=== PATIENT | female | born 1955 | race Caucasian/White ===

== ENCOUNTER 2018-01-30 17:40 | Emergency (ER) | payer MEDICARE, OTHER ==
[2018-01-30 17:47] VITALS: TEMP 98
[2018-01-30] MEDS ORDERED: MORPHINE SULFATE 4 MG/ML SYRINGE IV STA (18:07)
[2018-01-30] MEDS ORDERED: ONDANSETRON 4 MG/2 ML VIAL IVP STA ×2 (18:26→19:49)
--- NOTE | 2018-01-30 18:37 | ED ---
General Adult HPI - General Source: patient, RN notes reviewed, old records reviewed Mode of arrival: ambulatory Limitations: no limitations <Timothy Mancilla - Last Filed: 01/30/18 19:59> <Lenin Hernandez - Last Filed: 01/30/18 20:14> - General Chief complaint: Fall Stated complaint: Fall/ankle injury Time Seen by Provider: 01/30/18 17:50 - History of Present Illness Initial comments: Patient's a 62-year-old female presenting to the emergency room today by transfer from [facility] for a fall that occurred at 10 AM this morning. She states that she was walking out of her house down a ramp and she had some bags her hands she slipped with her right leg falling underneath her left as she went down. She states that she's had pain to the right ankle was taken to the hospital. Patient was transferred here for orthopedic consult. Patient doesn't pain locally. Patient denies any other complaints or symptoms at this time. Patient denies any recent fever, chills, shortness of breath, chest pain, back pain, abdominal pain, nausea or vomiting, headaches or visual changes, or any other complaints. (Timothy Mancilla) - Related Data Home Medications Medication Instructions Recorded Confirmed Folic Acid 1 tab PO Q48H 06/23/13 01/30/18 Multivitamin [Multivitamins] 1 tab PO DAILY 06/23/13 01/30/18 metFORMIN HCL [Glucophage] 500 mg PO TID 06/23/13 01/30/18 Ascorbic Acid [Vitamin C] 500 mg PO BID 06/30/13 01/30/18 Insulin Degludec [Tresiba 70 unit SQ HS 01/30/18 01/30/18 Flextouch U-100] Liraglutide [Victoza 2-Mailcar] 1.8 mg SQ HS 01/30/18 01/30/18 Lisinopril [Zestril] 2.5 mg PO DAILY 01/30/18 01/30/18 Vit C/E/Zn/Coppr/Lutein/Zeaxan 1 cap PO DAILY 01/30/18 01/30/18 [Preservision Areds 2 Softgel] Allergies Allergy/AdvReac Type Severity Reaction Status Date / Time sulfamethoxazole Allergy Unknown Verified 01/30/18 17:54 [From Bactrim] trimethoprim [From Bactrim] Allergy Unknown Verified 01/30/18 17:54 Review of Systems ROS Other: All systems not noted in ROS Statement are negative. <Timothy Mancilla - Last Filed: 01/30/18 19:59> ROS Other: All systems not noted in ROS Statement are negative. <Lenin Hernandez - Last Filed: 01/30/18 20:14> ROS Statement: Those systems with pertinent positive or pertinent negative responses have been documented in the HPI. Past Medical History Past Medical History: Diabetes Mellitus, Hypertension Additional Past Medical History / Comment(s): neuropathy; wound L Leg History of Any Multi-Drug Resistant Organisms: MRSA Date of last positivie culture/infection: 2013 MDRO Source:: left foot Past Surgical History: Back Surgery, Cholecystectomy, Hysterectomy, Orthopedic Surgery Past Anesthesia/Blood Transfusion Reactions: No Reported Reaction Past Psychological History: No Psychological Hx Reported Smoking Status: Never smoker Past Alcohol Use History: Occasional Past Drug Use History: None Reported - Past Family History Mother Family Medical History: No Reported History <Timothy Mancilla - Last Filed: 01/30/18 19:59> General Exam Limitations: no limitations <Timothy Mancilla - Last Filed: 01/30/18 19:59> <Lenin Hernandez - Last Filed: 01/30/18 20:14> - General Exam Comments Initial Comments: General: The patient is awake and alert, in no distress, and does not appear acutely ill. Cardiovascular: There is a regular rate and rhythm. No murmur, rub or gallop is appreciated. Respiratory: Lungs are clear to auscultation, respirations are non-labored, breath sounds are equal. No wheezes, stridor, rales, or rhonchi. Musculoskeletal: Patient's right lower extremities is placed in a posterior OCL splint.. Pulses checked and 2+. Sensations intact. Cap refill less than 2 seconds. Neurological: A&O x 3. CN II-XII intact, There are no obvious motor or sensory deficits. Coordination appears grossly intact. Speech is normal. Skin: Skin is warm and dry and no rashes or lesions are noted. Psychiatric: Cooperative, appropriate mood & affect, normal judgment. (Timothy Mancilla) Course <Timothy Mancilla - Last Filed: 01/30/18 19:59> <Lenin Hernandez - Last Filed: 01/30/18 20:14> Vital Signs 01/30/18 01/30/18 17:43 20:04 Temperature 98 F Pulse Rate 75 79 Respiratory 16 15 Rate Blood Pressure 133/58 105/50 O2 Sat by Pulse 98 95 Oximetry - Reevaluation(s) Reevaluation #1: 01/30/18 20:14 medical transfer paperwork and record reviewed (Lenin Hernandez) Medical Decision Making <Timothy Mancilla - Last Filed: 01/30/18 19:59> <Lenin Hernandez - Last Filed: 01/30/18 20:14> - Medical Decision Making 184: Case discussed with nurse practitioner Ayanna on-call for orthopedics. She states she will discuss case with Dr. Clifton. 1914: Nurse Practitioner Ayanna has called back and states that she did speak with Dr. Clifton about the fracture. States that it is a complication case and should be transferred. Discussed with attending Dr Hernandez who has spoken with [facility] and awaiting to hear back from them. (Timothy Mancilla) 62 female the ER for evaluation will transfer Janell Manley for orthopedic traumatic treatment and evaluation (Lenin Hernandez) - Lab Data Lab Results 01/30/18 Range/Units 20:03 POC Glucose (mg/dL) 118 H (75-99) mg/dL POC Glu Rayon Coner ID Derek Mcneill Disposition <Timothy Mancilla - Last Filed: 01/30/18 19:59> Is patient prescribed a controlled substance at d/c from ED?: No - Out of Hospital Transfer - Req. Specs Out of Hospital Transfer - Requested Specifics: Other Emergency Center ([facility]) <Lenin Hernandez - Last Filed: 01/30/18 20:14> Clinical Impression: Morbid obesity with BMI of 45.0-49.9, adult, Morbid obesity due to excess calories, Charcot's joint of foot, Bimalleolar fracture of right ankle Narrative: Intraarticular Comminuted Fracture of Distal Tibia and Fibula (Lenin Hernandez) Disposition: OTHER INSTITUTION NOT DEFINED Condition: Fair Referrals: Keith Suarez, DO [Primary Care Provider] - 1-2 days
[2018-01-30] MEDS ORDERED: HYDROmorphone 1 MG/ML 1 ML SYRINGE IVP STA (19:03)
[2018-01-30] MEDS ORDERED: ONDANSETRON ODT 4 MG TAB PO STA (19:49)
[2018-01-30 20:06] LABS: Glucose,Whole Blood 118 mg/dL (75-99)
[2018-01-30 22:12] VITALS: BP 142/58; PULSE 60; RESP 16
== END 2018-01-30 22:09 | disposition other institution (70) ==
LOC: EC 17:40
DX: S82.841A Displaced bimalleolar fracture of right lower leg, initial encounter for closed fracture (principal); A52.16 Charcot's arthropathy (tabetic); E66.01 Morbid (severe) obesity due to excess calories; Z68.42 Body mass index [BMI] 45.0-49.9, adult; E11.40 Type 2 diabetes mellitus with diabetic neuropathy, unspecified; I10 Essential (primary) hypertension; Z86.14 Personal history of Methicillin resistant Staphylococcus aureus infection; Z79.4 Long term (current) use of insulin; Z79.899 Other long term (current) drug therapy; Z88.2 Allergy status to sulfonamides; W01.0XXA Fall on same level from slipping, tripping and stumbling without subsequent striking against object, initial encounter; Y93.01 Activity, walking, marching and hiking; Y92.89 Other specified places as the place of occurrence of the external cause
CPT/HCPCS: 36415; 99284; 96374; 96375 ×2; 96376; J2270; J2405; J1170

== ENCOUNTER 2019-07-19 04:15 | Inpatient (IN) | payer MEDICARE, OTHER ==
--- NOTE | 2019-07-19 04:43 | ED ---
Recheck HPI - General Chief Complaint: Shortness of Breath Stated Complaint: Shortness of Breath Time Seen by Provider: 07/19/19 04:40 Source: patient, EMS, RN notes reviewed, old records reviewed Mode of arrival: EMS Limitations: no limitations - History of Present Illness Initial Comments: This is a 64-year-old female she is presented today is accepted in transfer for evaluation regarding CHF COPD hypoxia respiratory disease as well as elevated troponin elevated be Troponin mildly elevated 0.03 be 1 1999. Patient feeling better on arrival here in the emergency department, no current chest pain or shortness of breath states his symptoms have much improved since arrival at the emergency department MD Complaint: abnormal lab (Patient abnormal labs and abnormal physical exam) -: days(s) Returns Today for: Called Because of Abnormal Lab/Test Symptoms Since Prior Visit: no new symptoms Context: planned re-check Associated Symptoms: none - Related Data Home Medications Medication Instructions Recorded Confirmed Folic Acid 1 tab PO Q48H 06/23/13 01/30/18 Multivitamin [Multivitamins] 1 tab PO DAILY 06/23/13 01/30/18 metFORMIN HCL [Glucophage] 500 mg PO TID 06/23/13 01/30/18 Ascorbic Acid [Vitamin C] 500 mg PO BID 06/30/13 01/30/18 Insulin Degludec [Tresiba 70 unit SQ HS 01/30/18 01/30/18 Flextouch U-100] Liraglutide [Victoza 2-Amilcar] 1.8 mg SQ HS 01/30/18 01/30/18 Lisinopril [Zestril] 2.5 mg PO DAILY 01/30/18 01/30/18 Vit C/E/Zn/Coppr/Lutein/Zeaxan 1 cap PO DAILY 01/30/18 01/30/18 [Preservision Areds 2 Softgel] Allergies Allergy/AdvReac Type Severity Reaction Status Date / Time sulfamethoxazole Allergy Unknown Verified 01/30/18 17:54 [From Bactrim] trimethoprim [From Bactrim] Allergy Unknown Verified 01/30/18 17:54 Review of Systems ROS Statement: Those systems with pertinent positive or pertinent negative responses have been documented in the HPI. ROS Other: All systems not noted in ROS Statement are negative. Past Medical History Past Medical History: Diabetes Mellitus, Hypertension Additional Past Medical History / Comment(s): neuropathy; wound L Leg History of Any Multi-Drug Resistant Organisms: MRSA Date of last positivie culture/infection: 2013 MDRO Source:: left foot Past Surgical History: Back Surgery, Cholecystectomy, Hysterectomy, Orthopedic Surgery Past Anesthesia/Blood Transfusion Reactions: No Reported Reaction Past Psychological History: No Psychological Hx Reported Smoking Status: Never smoker Past Alcohol Use History: Occasional Past Drug Use History: None Reported - Past Family History Mother Family Medical History: No Reported History General Exam Limitations: no limitations General appearance: alert, in no apparent distress Head exam: Present: atraumatic, normocephalic, normal inspection Eye exam: Present: normal appearance, PERRL, EOMI. Absent: scleral icterus, conjunctival injection, periorbital swelling ENT exam: Present: normal exam, mucous membranes moist Neck exam: Present: normal inspection. Absent: tenderness, meningismus, lymphadenopathy Respiratory exam: Present: respiratory distress, wheezes, rales, accessory muscle use, decreased breath sounds, prolonged expiratory. Absent: rhonchi, stridor Cardiovascular Exam: Present: regular rate, normal rhythm, normal heart sounds. Absent: systolic murmur, diastolic murmur, rubs, gallop, clicks GI/Abdominal exam: Present: soft, normal bowel sounds. Absent: distended, tenderness, guarding, rebound, rigid Extremities exam: Present: normal inspection, full ROM, normal capillary refill. Absent: tenderness, pedal edema, joint swelling, calf tenderness Back exam: Present: normal inspection Neurological exam: Present: alert, oriented X3, CN II-XII intact Psychiatric exam: Present: normal affect, normal mood Skin exam: Present: warm, dry, intact, normal color. Absent: rash Course Vital Signs 07/19/19 07/19/19 04:16 04:22 Temperature 98.9 F Pulse Rate 76 Respiratory 18 18 Rate Blood Pressure 102/65 O2 Sat by Pulse 100 Oximetry - Reevaluation(s) Reevaluation #1: 07/19/19 05:04 Medical record transferring paperwork is reviewed Spoke with transferring physician agreeable transfer for Reevaluation #2: 07/19/19 05:05 Patient has no complaints of chest pain or shortness of breath - Consultations Consultation #1: Spoke with Dr. Shine agreeable for admission Medical Decision Making - EKG Data -: EKG Interpreted by Me (EKG shows sinus rhythm of 77, IA 136, QRS 96, QTc 468) Disposition Clinical Impression: Acute pulmonary edema, Acute exacerbation of chronic obstructive pulmonary disease, Congestive heart failure, Hypoxia Disposition: ADMITTED IP TO THIS HOSP Condition: Fair Is patient prescribed a controlled substance at d/c from ED?: No Referrals: Keith Suarez DO [Primary Care Provider] - 1-2 days
[2019-07-19] MEDS ORDERED: ALBUTEROL NEBULIZED 2.5 MG/3 ML INHALATION PRN (04:58)
[2019-07-19] MEDS ORDERED: IPRATROPIUM-ALBUTEROL 3 ML NEB INHALATION STA (04:58)
[2019-07-19] MEDS ORDERED: FUROSEMIDE 10 MG/ML 4 ML VIAL IV SCH (05:00)
--- NOTE | 2019-07-19 05:12 | XR ---
EXAMINATION TYPE: XR chest 1V portable DATE OF EXAM: 07/19/2019 COMPARISON: 07/19/2019 HISTORY: Short of breath TECHNIQUE: FINDINGS: There is some blunting of the costophrenic angles. There is mild congestion. Exam limited b y patient size. There is no obvious heart failure. There is probably some atelectasis at the lung bas es. IMPRESSION: Pleural effusions and atelectasis at the lung bases probably increased compared to last e xam 4 hours ago. No obvious heart failure.
[2019-07-19] MEDS ORDERED: methylPREDNISolone SOD SUCCI 125 MG/2 ML VIAL IV SCH (06:00)
[2019-07-19] MEDS ORDERED: ENOXAPARIN 40 MG/0.4 ML SYRINGE SQ SCH (09:00)
[2019-07-19] MEDS: FUROSEMIDE 10 MG/ML 4 ML VIAL IV SCH ×2 (09:46→21:38)
[2019-07-19] MEDS: IPRATROPIUM-ALBUTEROL 3 ML NEB INHALATION SCH ×3 (10:56→19:47)
--- NOTE | 2019-07-19 11:40 | P.CNPUL ---
History of Present Illness Consult date: 07/19/19 Requesting physician: Lenin Hernandez Reason for consult: dyspnea, pleural effusion, abnormal CXR/CT Chief complaint: shortness of breath History of present illness: 64-year-old white female patient of Dr. Eliza Contreras in [place], with history of hypertension, and history of nonhealing left leg wound with MRSA infection, morbid obesity, nonsmoker, the patient denies any history of chronic lung disease. patient presented to the emergency department on 07/19/2019 at 4:15 in the morning per EMS from [facility] for evaluation of worsening shortness of breath, patient felt like she could not get a breath in, but denied any chest pain, no fever or chills. She states she had significant weight gain of around 40 pounds in the last month. Her lower extremities appear to have changes of chronic venous stasis and chronic swelling, however patient states they're significantly more swollen than usual. chest x-ray showed mild congestion, probable atelectasis at the lung bases, and pleural effusions. EKG showed normal sinus rhythm with a rate of 77 with low voltage QRS, and evidence of anterior infarct of undetermined age. at [facility] patient had abnormal troponins and possibility of non-ST elevated VT is being considered. She was started on IV Lasix, IV steroids, and nebulized bronchodilators. Currently feeling better. She is awaiting a bed on selective care unit. Review of Systems All systems: negative Constitutional: Denies chills, Denies fever Eyes: denies blurred vision, denies pain Ears, nose, mouth and throat: Denies headache, Denies sore throat Cardiovascular: Reports decreased exercise tolerance, Reports dyspnea on exertion, Reports edema, Reports orthopnea, Denies chest pain, Denies shortness of breath Respiratory: Reports dyspnea, Denies cough Gastrointestinal: Denies abdominal pain, Denies diarrhea, Denies nausea, Denies vomiting Genitourinary: Denies dysuria, Denies hematuria Musculoskeletal: Denies myalgias Integumentary: Reports darkening of skin, Denies pruritus, Denies rash Neurological: Denies numbness, Denies weakness Psychiatric: Denies anxiety, Denies depression Endocrine: Denies fatigue, Denies weight change Past Medical History Past Medical History: Diabetes Mellitus, Hypertension Additional Past Medical History / Comment(s): neuropathy; wound L Leg History of Any Multi-Drug Resistant Organisms: MRSA Date of last positivie culture/infection: 2013 MDRO Source:: left foot Past Surgical History: Back Surgery, Cholecystectomy, Hysterectomy, Orthopedic Surgery Past Anesthesia/Blood Transfusion Reactions: No Reported Reaction Past Psychological History: No Psychological Hx Reported Smoking Status: Never smoker Past Alcohol Use History: Occasional Past Drug Use History: None Reported - Past Family History Mother Family Medical History: No Reported History Medications and Allergies Home Medications Medication Instructions Recorded Confirmed Type Multivitamin [Multivitamins] 1 tab PO DAILY 06/23/13 07/19/19 History Ascorbic Acid [Vitamin C] 500 mg PO BID 06/30/13 07/19/19 History Insulin Degludec [Tresiba 70 units SQ HS 07/19/19 07/19/19 History Flextouch U-200] Liraglutide [Victoza 3-Amilcar] 1.8 mg SQ DAILY 07/19/19 07/19/19 History Lisinopril [Zestril] 10 mg PO DAILY 07/19/19 07/19/19 History Tolterodine Tartrate [Detrol LA] 4 mg PO DAILY 07/19/19 07/19/19 History metFORMIN HCL [Glucophage] 500 mg PO TID 07/19/19 07/19/19 History Allergies Allergy/AdvReac Type Severity Reaction Status Date / Time sulfamethoxazole Allergy Unknown Verified 07/19/19 08:56 [From Bactrim] trimethoprim [From Bactrim] Allergy Unknown Verified 07/19/19 08:56 Physical Exam Vitals: Vital Signs Temp Pulse Resp BP Pulse Ox 07/19/19 06:00 75 18 112/61 99 07/19/19 05:29 76 07/19/19 05:20 74 07/19/19 04:22 18 07/19/19 04:16 98.9 F 76 18 102/65 100 Intake and Output 07/18/19 07/19/19 07/19/19 22:59 06:59 14:59 Output Total 700 Balance -700 Output: Urine 700 Other: Voiding Method Indwelling Catheter Weight 151.5 kg GENERAL EXAM: Alert, a pleasant, 64-year-old obese white female, currently on 2 L of oxygen with pulse ox of 97% resting comfortably on the gurney in the emergency chief librarian branch or department: Normocephalic/atraumatic. EYES: Normal reaction of pupils, equal size. Conjunctiva pink, sclera white. NOSE: Clear with pink turbinates. THROAT: No erythema or exudates. NECK: No masses, no JVD, no thyroid enlargement, no adenopathy. CHEST: No chest wall deformity. Symmetrical expansion. LUNGS: Equal air entry with no crackles, wheeze, rhonchi or dullness. CVS: Regular rate and rhythm, normal S1 and S2, no gallops, no murmurs, no rubs ABDOMEN: Soft, nontender. No hepatosplenomegaly, normal bowel sounds, no guarding or rigidity. EXTREMITIES: No clubbing, chronic venous stasis changes present to lower extremities, suspec t some chronic swelling to lower extremities no cyanosis, 2+ pulses and upper and lower extremities. 2+ lower extremity edema MUSCULOSKELETAL: Muscle strength and tone normal. SPINE: No scoliosis or deformity SKIN: No rashes CENTRAL NERVOUS SYSTEM: Alert and oriented -3. No focal deficits, tone is normal in all 4 extremities. PSYCHIATRIC: Alert and oriented -3. Appropriate affect. Intact judgment and insight. Results - Diagnostic Findings Chest x-ray: report reviewed, image reviewed Assessment and Plan Plan: Assessment: #1. Acute hypoxemic respiratory failure related to acute exacerbation of congestive heart failure with unknown ejection fraction #2. Rule out non-ST elevated myocardial infarction #3. Significant weight gain of around 40 pounds in the last month #4. Morbid obesity #5. Lifetime nonsmoker #6. diabetes mellitus type 2, with diabetic neuropathy #7. History of MRSA infection and nonhealing wound in the left leg Plan: Continue IV diuretics, accurate intake and output, daily weights, daily electrolytes and renal profile, follow-up troponin, will obtain echocardiogram, follow-up chest x-ray in the morning. COVID 19 test is pending. Cardiology evaluation is pending. we'll continue to follow I performed a history & physical examination of the patient and discussed their management with my nurse practitioner, Vandana Curry. I reviewed the nurse practitioner's note and agree with the documented findings and plan of care. Lung sounds are positive for diminished breath sounds. The findings and the impression was discussed with the patient. I attest to the documentation by the nurse practitioner. Time with Patient: Greater than 30
[2019-07-19 12:31] LABS: Basophils % (A) 0 %; Eosinophils % (A) 0 %; HCT 37.5 % (34.0-46.0); HGB 11.5 gm/dL (11.4-16.0); Hypochromasia Marked; Lymphocytes # (A) 0.5 k/uL (1.0-4.8); Lymphocytes % (A) 7 %; MCH 26.7 pg (25.0-35.0); MCHC 30.8 g/dL (31.0-37.0); MCV 86.6 fL (80.0-100.0); Mean Platelet Volume 8.3; Monocytes # (A) 0.1 k/uL (0-1.0); Monocytes % (A) 2 %; Neutrophils # (A) 6.5 k/uL (1.3-7.7); Neutrophils % (A) 90 %; Platelet Count 280 k/uL (150-450); RBC 4.33 m/uL (3.80-5.40); RDW 14.7 % (11.5-15.5); WBC 7.3 k/uL (3.8-10.6)
[2019-07-19 12:42] LABS: Albumin 3.4 g/dL (3.5-5.0); Calcium 8.4 mg/dL (8.4-10.2); Potassium 4.8 mmol/L (3.5-5.1); Total Bilirubin 0.8 mg/dL (0.2-1.3); Total Protein 6.2 g/dL (6.3-8.2)
--- NOTE | 2019-07-19 12:55 | P.CRDCN ---
History of Present Illness Consult date: 07/19/19 Chief complaint: Shortness of breath/lower extremities edema History of present illness: This is a very pleasant 64-year-old female patient with a past medical history significant for morbid obesity, diabetes, hypertension, and dyslipidemia as well as tonic lower extremities edema. The patient was in her usual state of altered about 3 weeks ago when she started experiencing progressive exertional dyspnea associated with progressive lower extremities edema. She stated that she gained 50 pounds within one month. No symptoms of chest pain or chest discomfort, dizziness, heart racing, or syncope. The patient ever being told in the past t hat she does have congestive heart failure. The patient never seen any principal consultant as an outpatient. No history of coronary artery disease or any cardiac arrhythmia. On physical examination she does have severe bilateral lower extremities edema was chronic skin changes. She does have diminished breathing sounds during her physical examination as well. The EKG showed sinus rhythm without any significant ST or T-wave abnormalities but nonspecific changes. No blood work in the computer but I am going to review her blood work from the hospital she was transferred from. Meanwhile we'll repeat her blood work including CBC, BMP, as well as cardiac enzymes, as well as BMP. The patient was started on Lasix already. I am going to obtain an echocardiogram to evaluate her left ventricular systolic and diastolic function and also for any intracardiac valves abnormalities. We'll continue following up with the patient. Past Medical History Past Medical History: Diabetes Mellitus, Hypertension Additional Past Medical History / Comment(s): neuropathy; wound L Leg History of Any Multi-Drug Resistant Organisms: MRSA Date of last positivie culture/infection: 2013 MDRO Source:: left foot Past Surgical History: Back Surgery, Cholecystectomy, Hysterectomy, Orthopedic Surgery Past Anesthesia/Blood Transfusion Reactions: No Reported Reaction Past Psychological History: No Psychological Hx Reported Smoking Status: Never smoker Past Alcohol Use History: Occasional Past Drug Use History: None Reported - Past Family History Mother Family Medical History: No Reported History Medications and Allergies Home Medications Medication Instructions Recorded Confirmed Type Multivitamin [Multivitamins] 1 tab PO DAILY 06/23/13 07/19/19 History Ascorbic Acid [Vitamin C] 500 mg PO BID 06/30/13 07/19/19 History Insulin Degludec [Tresiba 70 units SQ HS 07/19/19 07/19/19 History Flextouch U-200] Liraglutide [Victoza 3-Amilcar] 1.8 mg SQ DAILY 07/19/19 07/19/19 History Lisinopril [Zestril] 10 mg PO DAILY 07/19/19 07/19/19 History Tolterodine Tartrate [Detrol LA] 4 mg PO DAILY 07/19/19 07/19/19 History metFORMIN HCL [Glucophage] 500 mg PO TID 07/19/19 07/19/19 History Allergies Allergy/AdvReac Type Severity Reaction Status Date / Time sulfamethoxazole Allergy Unknown Verified 07/19/19 08:56 [From Bactrim] trimethoprim [From Bactrim] Allergy Unknown Verified 07/19/19 08:56 Physical Exam Vitals: Vital Signs Temp Pulse Resp BP Pulse Ox 07/19/19 11:17 98.1 F 80 20 126/74 97 07/19/19 11:06 88 07/19/19 10:56 88 07/19/19 10:37 76 20 123/67 97 07/19/19 06:00 75 18 112/61 99 07/19/19 05:29 76 07/19/19 05:20 74 07/19/19 04:22 18 07/19/19 04:16 98.9 F 76 18 102/65 100 Intake and Output 07/18/19 07/19/19 07/19/19 22:59 06:59 14:59 Output Total 700 Balance -700 Output: Urine 700 Other: Voiding Method Indwelling Catheter Weight 151.5 kg - Constitutional General appearance: no acute distress - Respiratory Respiratory: bilateral: diminished - Cardiovascular Rhythm: regular Heart sounds: normal: S1, S2 Abnormal Heart Sounds: systolic murmur Results 07/19/19 11:59 07/19/19 11:59 Cardiac Enzymes 07/19/19 Range/Units 11:59 AST 39 H (14-36) U/L CBC 07/19/19 Range/Units 11:59 WBC 7.3 (3.8-10.6) k/uL RBC 4.33 (3.80-5.40) m/uL Hgb 11.5 (11.4-16.0) gm/dL Hct 37.5 (34.0-46.0) % Plt Count 280 (150-450) k/uL Comprehensive Metabolic Panel 07/19/19 Range/Units 11:59 Sodium 133 L (137-145) mmol/L Potassium 4.8 (3.5-5.1) mmol/L Chloride 98 (98-107) mmol/L Carbon Dioxide 26 (22-30) mmol/L BUN 30 H (7-17) mg/dL Creatinine 1.13 H (0.52-1.04) mg/dL Glucose 167 H (74-99) mg/dL Calcium 8.4 (8.4-10.2) mg/dL AST 39 H (14-36) U/L ALT 45 H (4-34) U/L Alkaline Phosphatase 146 H (38-126) U/L Total Protein 6.2 L (6.3-8.2) g/dL Albumin 3.4 L (3.5-5.0) g/dL Current Medications Generic Name Dose Route Start Last Admin Trade Name Freq PRN Reason Stop Dose Admin Albuterol Sulfate 2.5 mg 07/19/19 04:58 Ventolin Nebulized INHALATION RT-QID PRN Shortness Of Breath Albuterol/Ipratropium 3 ml 07/19/19 08:00 07/19/19 10:56 Duoneb 0.5 Mg-3 Mg/3 Ml Soln INHALATION 3 ml RT-QID JOCELYN Administration Enoxaparin Sodium 40 mg 07/19/19 09:00 07/19/19 11:16 Lovenox SQ 40 mg DAILY JOCELYN Administration Furosemide 40 mg 07/19/19 09:00 07/19/19 09:46 Lasix IV Not Given Q12HR JOCELYN Lisinopril 10 mg 07/20/19 09:00 Zestril PO DAILY JOCELYN Intake and Output 07/18/19 07/19/19 07/19/19 22:59 06:59 14:59 Output Total 700 Balance -700 Output: Urine 700 Other: Voiding Method Indwelling Catheter Weight 151.5 kg 07/19/19 11:59 07/19/19 11:59 Assessment and Plan Assessment: Assessment #1 congestive heart failure exacerbation of unknown etiology #2 morbid obesity #3 diabetes #4 multiple comorbid conditions Plan #1 rule out acute coronary event. We'll follow-up on the serial cardiac enzymes #2 review with a blood work from the hospital she was transferred from #3 obtain an echocardiogram was Doppler #4 continue the current dose of Lasix IV #5 continue monitoring the kidney function and electrolytes #6 follow-up with the patient Thank you for allowing us participate in her care
--- NOTE | 2019-07-19 15:21 | P.HPIM ---
History of Present Illness 64-year-old morbidly obese female came in with compensative from bilateral pedal edema 44 pound weight gain and some shortness of breath and orthopnea. Patient believes she has sleep apnea but never gets study done patient appears to have severe restrictive lung disease. Patient is receiving Lasix had not had an echocardiogram available from the past. Patient does have chronic venous stasis of both lower extremities. Patient denied any chest pain chest x-ray showed mild congestion possible DF atelectasis in both lower lung bases EKG did not show any acute ST-T wave changes cardiology evaluated patient will not be evaluated the patient as well. Patient was started on IV Lasix. Review of Systems REVIEW OF SYSTEMS: CONSTITUTIONAL: No fever, no malaise, no fatigue. HEENT: No recent visual problems or hearing problems. Denied any sore throat. CARDIOVASCULAR: No chest pain, orthopnea, PND, no palpitations, no syncope. PULMONARY: no cough, no hemoptysis. GASTROINTESTINAL: No diarrhea, no nausea, no vomiting, no abdominal pain. NEUROLOGICAL: No headaches, no weakness, no numbness. HEMATOLOGICAL: Denies any bleeding or petechiae. GENITOURINARY: Denies any burning micturition, frequency, or urgency. MUSCULOSKELETAL/RHEUMATOLOGICAL: Denies any joint pain, swelling, or any muscle pain. ENDOCRINE: Denies any polyuria or polydipsia. The rest of the 14-point review of systems is negative. Past Medical History Past Medical History: Diabetes Mellitus, Hypertension Additional Past Medical History / Comment(s): neuropathy; wound L Leg History of Any Multi-Drug Resistant Organisms: MRSA Date of last positivie culture/infection: 2013 MDRO Source:: left foot Past Surgical History: Back Surgery, Cholecystectomy, Hysterectomy, Orthopedic Surgery Past Anesthesia/Blood Transfusion Reactions: No Reported Reaction Past Psychological History: No Psychological Hx Reported Smoking Status: Never smoker Past Alcohol Use History: Occasional Past Drug Use History: None Reported - Past Family History Mother Family Medical History: No Reported History Medications and Allergies Home Medications Medication Instructions Recorded Confirmed Type Multivitamin [Multivitamins] 1 tab PO DAILY 06/23/13 07/19/19 History Ascorbic Acid [Vitamin C] 500 mg PO BID 06/30/13 07/19/19 History Insulin Degludec [Tresiba 70 units SQ HS 07/19/19 07/19/19 History Flextouch U-200] Liraglutide [Victoza 3-Amilcar] 1.8 mg SQ DAILY 07/19/19 07/19/19 History Lisinopril [Zestril] 10 mg PO DAILY 07/19/19 07/19/19 History Tolterodine Tartrate [Detrol LA] 4 mg PO DAILY 07/19/19 07/19/19 History metFORMIN HCL [Glucophage] 500 mg PO TID 07/19/19 07/19/19 History Allergies Allergy/AdvReac Type Severity Reaction Status Date / Time sulfamethoxazole Allergy Unknown Verified 07/19/19 08:56 [From Bactrim] trimethoprim [From Bactrim] Allergy Unknown Verified 07/19/19 08:56 Physical Exam Vitals: Vital Signs Temp Pulse Resp BP Pulse Ox 07/19/19 11:17 98.1 F 80 20 126/74 97 07/19/19 11:06 88 07/19/19 10:56 88 07/19/19 10:37 76 20 123/67 97 07/19/19 06:00 75 18 112/61 99 07/19/19 05:29 76 07/19/19 05:20 74 07/19/19 04:22 18 07/19/19 04:16 98.9 F 76 18 102/65 100 Intake and Output 07/19/19 07/19/19 07/19/19 06:59 14:59 22:59 Output Total 700 Balance -700 Output: Urine 700 Other: Voiding Method Indwelling Catheter Weight 151.5 kg PHYSICAL EXAMINATION: GENERAL: The patient is alert and oriented x3, not in any acute distress. Her but obese with BMI of around 54 HEENT: Pupils are round and equally reacting to light. EOMI. No scleral icterus. No conjunctival pallor. Normocephalic, atraumatic. No pharyngeal erythema. No thyromegaly. CARDIOVASCULAR: S1 and S2 present. No murmurs, rubs, or gallops. PULMONARY: Chest is clear to auscultation, no wheezing or crackles. ABDOMEN: Soft, nontender, nondistended, normoactive bowel sounds. No palpable organomegaly. MUSCULOSKELETAL: No joint swelling or deformity. EXTREMITIES: No cyanosis, clubbing, extensive bilateral pedal edema with chronic venous stasis and venous stasis dermatosis of both legs with more healed ulcers NEUROLOGICAL: Gross neurological examination did not reveal any focal deficits. SKIN: No rashes. Results CBC & Chem 7: 07/19/19 11:59 07/19/19 11:59 Labs: Abnormal Lab Results - Last 24 Hours (Table) 07/19/19 07/19/19 07/19/19 Range/Units 11:31 11:59 11:59 MCHC 30.8 L (31.0-37.0) g/dL Lymphocytes # 0.5 L (1.0-4.8) k/uL Sodium 133 L (137-145) mmol/L BUN 30 H (7-17) mg/dL Creatinine 1.13 H (0.52-1.04) mg/dL Glucose 167 H (74-99) mg/dL AST 39 H (14-36) U/L ALT 45 H (4-34) U/L Alkaline Phosphatase 146 H (38-126) U/L Troponin I 0.042 H* (0.000-0.034) ng/mL Total Protein 6.2 L (6.3-8.2) g/dL Albumin 3.4 L (3.5-5.0) g/dL Assessment and Plan Plan: Bilateral pedal edema shortness of breath patient most probably has severe pulmonary hypertension from undiagnosed sleep apnea including to extensive pedal edema fluid retention and right-sided heart failure I cannot completely rule out left-sided heart failure echocardiogram is pending continue with IV Lasix. Shortness of breath is partly secondary to her obesity obesity hypoventilation syndrome. -Hyponatremia hypervolemic hyponatremia expected to improve with IV Lasix -Chronic kidney disease stage III secondary to diabetic nephropathy -Mildly elevated troponin secondary to shortness of breath -Mildly elevated liver enzymes secondary to hepatic congestion -Obesity with sleep apnea and possible based stay hypoventilation syndrome -Type 2 diabetes mellitus: The patient will be resumed on home regimen along w ith sliding scale -DVT prophylaxis with Lovenox
[2019-07-19 17:03] LABS: Glucose,Whole Blood 179 mg/dL (75-99)
[2019-07-19] MEDS: INSULIN ASPART (NovoLOG) 100 UNIT/ML VIAL SQ SCH ×2 (17:09→21:38)
[2019-07-19] MEDS ORDERED: INSULIN DETEMIR (LEVEMIR) 100 UNIT/ML SYR SQ SCH (21:00)
[2019-07-19 21:17] LABS: Glucose,Whole Blood 242 mg/dL (75-99)
[2019-07-19] MEDS: HEPARIN SOD,PORK IN 0.45% NACL 25,000 UNIT in 0.45% NACL 1 250ML.BAG IV SCH (21:41)
[2019-07-20] MEDS ORDERED: HEPARIN SODIUM,PORCINE 5,000 UNIT/ML 1 ML VIAL IV STA (04:13)
[2019-07-20 04:14] LABS: Calcium 8.8 mg/dL (8.4-10.2)
[2019-07-20 07:29] LABS: Glucose,Whole Blood 163 mg/dL (75-99)
[2019-07-20] MEDS: IPRATROPIUM-ALBUTEROL 3 ML NEB INHALATION SCH ×4 (08:12→20:41)
[2019-07-20] MEDS: INSULIN ASPART (NovoLOG) 100 UNIT/ML VIAL SQ SCH ×3 (08:17→21:14)
[2019-07-20] MEDS: LISINOPRIL 10 MG TAB PO SCH (09:11)
[2019-07-20] MEDS: OXYBUTYNIN 10 MG TAB.ER.24 PO SCH (09:11)
[2019-07-20] MEDS: FUROSEMIDE 10 MG/ML 4 ML VIAL IV SCH ×2 (09:13→21:14)
[2019-07-20 10:16] LABS: Glucose,Whole Blood 198 mg/dL (75-99)
[2019-07-20] MEDS ORDERED: HEPARIN SODIUM,PORCINE 5,000 UNIT/ML 1 ML VIAL IV PRN (11:29)
[2019-07-20] MEDS ORDERED: INSULIN ASPART (NovoLOG) 100 UNIT/ML VIAL SQ SCH (12:30)
--- NOTE | 2019-07-20 12:35 | P.PN ---
Subjective 64-year-old female was admitted with shortness of breath and weight gain of 44 pounds and patient is being treated for failure exacerbation patient may have congestive heart failure left ventricular dysfunction and/or right-sided heart failure and pulmonary hypertension. Echocardiogram is still pending. Patient's swelling in the both legs improved significantly. Patient remains on Lasix patient feels much better today. But still short of breath Constitutional: Denied any fatigue denied any fever. Cardio vascular: denied any chest pain, palpitations Gastrointestinal denied any nausea vomiting Pulmonary: As mentioned in HPI Neurologic denied any new focal deficits All inpatient medications were reviewed and appropriate changes in these medications as dictated in the interval history and assessment and plan. Objective - Vital Signs Vital signs: Vital Signs Temp 98.9 F 07/20/19 11:55 Pulse 85 07/20/19 12:24 Resp 19 07/20/19 11:55 BP 122/61 07/20/19 11:55 Pulse Ox 99 07/20/19 11:55 Intake & Output 07/19/19 07/20/19 07/20/19 18:59 06:59 18:59 Intake Total 64.563 105.82 Output Total 5451 316 5189 Balance -1500 -435.437 -1044.18 Intake: Intake, IV Titration 64.563 105.82 Amount Heparin Sod,Pork in 0.45% 64.563 105.82 NaCl 25,000 unit In 0.45 % NaCl 1 250ml.bag @ 6.59 UNITS/KG/HR 9.984 mls/hr IV .[facility]H [facility] Rx#: [id number] Output: Urine 8917 117 2225 Other: Voiding Method Indwelling Catheter Indwelling Catheter - Exam PHYSICAL EXAMINATION: GENERAL: The patient is alert and oriented x3, not in any acute distress. Her but obese with BMI of around 54 HEENT: Pupils are round and equally reacting to light. EOMI. No scleral icterus. No conjunctival pallor. Normocephalic, atraumatic. No pharyngeal erythema. No thyromegaly. CARDIOVASCULAR: S1 and S2 present. No murmurs, rubs, or gallops. PULMONARY: Chest is clear to auscultation, no wheezing or crackles. ABDOMEN: Soft, nontender, nondistended, normoactive bowel sounds. No palpable organomegaly. MUSCULOSKELETAL: No joint swelling or deformity. EXTREMITIES: No cyanosis, clubbing, extensive bilateral pedal edema with chronic venous stasis and venous stasis dermatosis of both legs with more healed ulcers, swelling in both legs intermittently improved NEUROLOGICAL: Gross neurological examination did not reveal any focal deficits. SKIN: No rashes. - Labs CBC & Chem 7: 07/19/19 11:59 07/20/19 03:02 Labs: Abnormal Lab Results - Last 24 Hours (Table) 07/19/19 07/19/19 07/19/19 Range/Units 11:31 11:59 16:21 Sodium 133 L (137-145) mmol/L Chloride (98-107) mmol/L BUN 30 H (7-17) mg/dL Creatinine 1.13 H (0.52-1.04) mg/dL Glucose 167 H (74-99) mg/dL POC Glucose (mg/dL) (75-99) mg/dL AST 39 H (14-36) U/L ALT 45 H (4-34) U/L Alkaline Phosphatase 146 H (38-126) U/L Troponin I 0.042 H* 0.037 H* (0.000-0.034) ng/mL Total Protein 6.2 L (6.3-8.2) g/dL Albumin 3.4 L (3.5-5.0) g/dL 07/19/19 07/19/19 07/20/19 Range/Units 17:01 21:15 03:02 Sodium 135 L (137-145) mmol/L Chloride 97 L (98-107) mmol/L BUN 34 H (7-17) mg/dL Creatinine 1.18 H (0.52-1.04) mg/dL Glucose 199 H (74-99) mg/dL POC Glucose (mg/dL) 179 H 242 H (75-99) mg/dL AST (14-36) U/L ALT (4-34) U/L Alkaline Phosphatase (38-126) U/L Troponin I (0.000-0.034) ng/mL Total Protein (6.3-8.2) g/dL Albumin (3.5-5.0) g/dL 07/20/19 07/20/19 Range/Units 07:28 10:14 Sodium (137-145) mmol/L Chloride (98-107) mmol/L BUN (7-17) mg/dL Creatinine (0.52-1.04) mg/dL Glucose (74-99) mg/dL POC Glucose (mg/dL) 163 H 198 H (75-99) mg/dL AST (14-36) U/L ALT (4-34) U/L Alkaline Phosphatase (38-126) U/L Troponin I (0.000-0.034) ng/mL Total Protein (6.3-8.2) g/dL Albumin (3.5-5.0) g/dL Assessment and Plan Plan: Bilateral pedal edema shortness of breath patient most probably has severe pulmonary hypertension from undiagnosed sleep apnea including to extensive pedal edema fluid retention and right-sided heart failure I cannot completely rule out left-sided heart failure echocardiogram is pending continue with IV Lasix. Respiratory status improved. Her edema improved significantly -Hyponatremia hypervolemic hyponatremia improving with IV Lasix -Chronic kidney disease stage III secondary to diabetic nephropathy -Mildly elevated troponin secondary to shortness of breath -Mildly elevated liver enzymes secondary to hepatic congestion -Obesity with sleep apnea and possible based stay hypoventilation syndrome -Type 2 diabetes mellitus: The patient will be resumed on home regimen along with sliding scale -DVT prophylaxis with Lovenox
[2019-07-20 12:44] LABS: Glucose,Whole Blood 216 mg/dL (75-99)
[2019-07-20 12:52] VITALS: BMI 53.8
--- NOTE | 2019-07-20 14:57 | P.PN ---
Subjective Progress Note Date: 07/20/19 Principal diagnosis: dyspnea, pleural effusion, abnormal chest x-ray on 07/20/2019 patient seen in follow-up on selective care unit. She is awake and alert, feeling much better, breathing much easier, she has been diuresed, lower extremity edema has improved, and abdominal distention has improved, she is currently at 2 L of oxygen with pulse ox between 94 and 99%, no complaint of chest pain, sounds are clear, diminished at the bases, no rhonchi, no wheezing, no phlegm production. she remains on heparin infusion for elevated troponins, and she's had no episodes of chest pain, patient is on IV Lasix at 40 mg every 12 hours, and she is in -1044 mL fluid balance over the last 24 hours. echocardiogram results have been pending. Objective - Vital Signs Vital signs: Vital Signs Temp 98.9 F 07/20/19 11:55 Pulse 85 07/20/19 12:24 Resp 19 07/20/19 11:55 BP 122/61 07/20/19 11:55 Pulse Ox 99 07/20/19 11:55 Intake & Output 07/19/19 07/20/19 07/20/19 18:59 06:59 18:59 Intake Total 64.563 105.82 Output Total 3434 493 0008 Balance -1500 -435.437 -1044.18 Weight 151.5 kg Intake: Intake, IV Titration 64.563 105.82 Amount Heparin Sod,Pork in 0.45% 64.563 105.82 NaCl 25,000 unit In 0.45 % NaCl 1 250ml.bag @ 6.59 UNITS/KG/HR 9.984 mls/hr IV .Q24H [facility] Rx#: [id number] Output: Urine 3678 [id number] [id number] Other: Voiding Method Indwelling Catheter Indwelling Catheter - Exam GENERAL EXAM: Alert, a pleasant, 64-year-old obese white female, currently on 2 L of oxygen with pulse ox of 97% resting comfortably on the gurney in the 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 EYES: Normal reaction of pupils, equal size. Conjunctiva pink, sclera white. NOSE: Clear with pink turbinates. THROAT: No erythema or exudates. NECK: No masses, no JVD, no thyroid enlargement, no adenopathy. CHEST: No chest wall deformity. Symmetrical expansion. LUNGS: Equal air entry with no crackles, wheeze, rhonchi or dullness. CVS: Regular rate and rhythm, normal S1 and S2, no gallops, no murmurs, no rubs ABDOMEN: Soft, nontender. No hepatosplenomegaly, normal bowel sounds, no guarding or rigidity. EXTREMITIES: No clubbing, chronic venous stasis changes present to lower extremities, suspec t some chronic swelling to lower extremities no cyanosis, 2+ pulses and upper and lower extremities. 2+ lower extremity edema MUSCULOSKELETAL: Muscle strength and tone normal. SPINE: No scoliosis or deformity SKIN: No rashes CENTRAL NERVOUS SYSTEM: Alert and oriented -3. No focal deficits, tone is normal in all 4 extremities. PSYCHIATRIC: Alert and oriented -3. Appropriate affect. Intact judgment and insight. - Labs CBC & Chem 7: 07/19/19 11:59 07/20/19 03:02 Labs: Abnormal Lab Results - Last 24 Hours (Table) 07/19/19 07/19/19 07/19/19 Range/Units 16:21 17:01 21:15 Sodium (137-145) mmol/L Chloride (98-107) mmol/L BUN (7-17) mg/dL Creatinine (0.52-1.04) mg/dL Glucose (74-99) mg/dL POC Glucose (mg/dL) 179 H 242 H (75-99) mg/dL Troponin I 0.037 H* (0.000-0.034) ng/mL 07/20/19 07/20/19 07/20/19 Range/Units 03:02 07:28 10:14 Sodium 135 L (137-145) mmol/L Chloride 97 L (98-107) mmol/L BUN 34 H (7-17) mg/dL Creatinine 1.18 H (0.52-1.04) mg/dL Glucose 199 H (74-99) mg/dL POC Glucose (mg/dL) 163 H 198 H (75-99) mg/dL Troponin I (0.000-0.034) ng/mL 07/20/19 Range/Units 12:43 Sodium (137-145) mmol/L Chloride (98-107) mmol/L BUN (7-17) mg/dL Creatinine (0.52-1.04) mg/dL Glucose (74-99) mg/dL POC Glucose (mg/dL) 216 H (75-99) mg/dL Troponin I (0.000-0.034) ng/mL Assessment and Plan Plan: Assessment: #1. Acute hypoxemic respiratory failure related to acute exacerbation of congestive heart failure with unknown ejection fraction #2. Rule out non-ST elevated myocardial infarction #3. Significant weight gain of around 40 pounds in the last month #4. Morbid obesity #5. Lifetime nonsmoker #6. diabetes mellitus type 2, with diabetic neuropathy #7. History of MRSA infection and nonhealing wound in the left leg #8. Suspect obstructive sleep apnea, will need outpatient evaluation Plan: Continue current medical treatment, continue IV diuretics, echocardiogram results are pending, overall patient is breathing easier, feeling better, FiO2 is currently at 2 L, patient reports intermittent lower extremity edema, and abdominal distention. Follow-up chest x-ray in the morning. Suspect underlying obstructive sleep apnea, and patient is recommended to have outpatient evalu ation with the sleep study. will follow I performed a history & physical examination of the patient and discussed their management with my nurse practitioner, Vandana Curry. I reviewed the nurse pr actitioner's note and agree with the documented findings and plan of care. Lung sounds are positive for diminished breath sounds. The findings and the impression was discussed with the patient. I attest to the documentation by the nurse practitioner. Time with Patient: Less than 30
--- NOTE | 2019-07-20 15:03 | P.PN ---
Subjective Progress Note Date: 07/20/19 Principal diagnosis: Shortness of breath/mildly abnormal troponin This is a very pleasant 64-year-old female patient with a past medical history significant for morbid obesity, diabetes, hypertension, and dyslipidemia as well as tonic lower extremities edema. The patient was in her usual state of altered about 3 weeks ago when she started experiencing progressive exertional dyspnea associated with progressive lower extremities edema. She stated that she gained 50 pounds within one month. No symptoms of chest pain or chest discomfort, dizziness, heart racing, or syncope. The patient ever being told in the past that she does have congestive heart failure. The patient never seen any engine room helper as an outpatient. No history of coronary artery disease or any cardiac arrhythmia. On physical examination she does have severe bilateral lower extremities edema was chronic skin changes. The EKG showed sinus rhythm without any significant ST or T-wave abnormalities but nonspecific changes. The patient was seen today, July 192019. She stated that she is feeling better interval shortness of breath. No chest pain or chest discomfort. The troponin is slightly elevated. She is on heparin IV. She is also on Lasix which I would continue for additional 24 hours. We are waiting for the echocardiogram results. Objective - Vital Signs Vital signs: Vital Signs Temp 98.9 F 07/20/19 11:55 Pulse 85 07/20/19 12:24 Resp 19 07/20/19 11:55 BP 122/61 07/20/19 11:55 Pulse Ox 99 07/20/19 11:55 Intake & Output 07/19/19 07/20/19 07/20/19 18:59 06:59 18:59 Intake Total 64.563 105.82 Output Total 0770 811 1825 Balance -1500 -435.437 -1044.18 Weight 151.5 kg Intake: Intake, IV Titration 64.563 105.82 Amount Heparin Sod,Pork in 0.45% 64.563 105.82 NaCl 25,000 unit In 0.45 % NaCl 1 250ml.bag @ 6.59 UNITS/KG/HR 9.984 mls/hr IV .Q24H [facility] Rx#: [id number] Output: Urine [id number] Other: Voiding Method Indwelling Catheter Indwelling Catheter - Constitutional General appearance: Present: no acute distress - Respiratory Respiratory: bilateral: diminished - Cardiovascular Rhythm: regular Heart sounds: normal: S1, S2 - Labs CBC & Chem 7: 07/19/19 11:59 07/20/19 03:02 Labs: Abnormal Lab Results - Last 24 Hours (Table) 07/19/19 07/19/19 07/19/19 Range/Units 16:21 17:01 21:15 Sodium (137-145) mmol/L Chloride (98-107) mmol/L BUN (7-17) mg/dL Creatinine (0.52-1.04) mg/dL Glucose (74-99) mg/dL POC Glucose (mg/dL) 179 H 242 H (75-99) mg/dL Troponin I 0.037 H* (0.000-0.034) ng/mL 07/20/19 07/20/19 07/20/19 Range/Units 03:02 07:28 10:14 Sodium 135 L (137-145) mmol/L Chloride 97 L (98-107) mmol/L BUN 34 H (7-17) mg/dL Creatinine 1.18 H (0.52-1.04) mg/dL Glucose 199 H (74-99) mg/dL POC Glucose (mg/dL) 163 H 198 H (75-99) mg/dL Troponin I (0.000-0.034) ng/mL 07/20/19 Range/Units 12:43 Sodium (137-145) mmol/L Chloride (98-107) mmol/L BUN (7-17) mg/dL Creatinine (0.52-1.04) mg/dL Glucose (74-99) mg/dL POC Glucose (mg/dL) 216 H (75-99) mg/dL Troponin I (0.000-0.034) ng/mL Assessment and Plan Assessment: Assessment #1 congestive heart failure exacerbation of unknown etiology #2 mildly abnormal cardiac enzymes #3 diabetes #4 multiple comorbid conditions Plan #1 continue the current medical regimen #2 continue heparin IV #3 continue the Lasix IV #4 awaiting the echocardiogram results #5 possible coronary angiogram
[2019-07-20] MEDS: HEPARIN SOD,PORK IN 0.45% NACL 25,000 UNIT in 0.45% NACL 1 250ML.BAG IV SCH (16:06)
[2019-07-20 16:50] LABS: Glucose,Whole Blood 192 mg/dL (75-99)
--- NOTE | 2019-07-20 20:13 | ECHOF ---
Referral Reason:Possible NSTEMI MEASUREMENTS -------- HEIGHT: 167.6 cm WEIGHT: 151.5 kg BP: 110/77 IVSd: 1.5 cm (0.6 - 1.1) LVIDd: 6.0 cm (3.9 - 5.3) LVPWd: 1.5 cm (0.6 - 1.1) IVSs: 1.9 cm LVIDs: 3.8 cm LVPWs: 1.8 cm LA Diam: 3.8 cm (2.7 - 3.8) RVIDd: 3.4 cm (< 3.3) LAESV Index (A-L): 25.13 ml/m Ao Diam: 3.2 cm (2.0 - 3.7) AV Cusp: 2.4 cm (1.5 - 2.6) EPSS: 1.2 cm MV E Ravi: 1.18 m/s MV DecT: 207 ms MV A Ravi: 0.75 m/s MV E/A Ratio: 1.57 RAP: 5.00 mmHg RVSP: 33.54 mmHg MV EF SLOPE: 79.41 mm/s (70 - 150) MV EXCURSION: 17.72 mm (> 18.000) FINDINGS -------- Sinus rhythm. This was a technically difficult study with suboptimal views. The left ventricle is moderately dilated. There is moderate concentric left ventricular hypertrophy . Overall left ventricular systolic function is severely impaired with, an EF between 25 - 30 %. The right ventricle is mildly enlarged. Normal LA size by volume 22+/-6 ml/m2. The right atrium was not well visualized. 5.0mg of Lumason was utilized for enhancement of images Interatrial and interventricular septum intact. The aortic valve was not well visualized. The mitral valve leaflets are mildly thickened. Mild mitral annular calcification present. Mild m itral regurgitation is present. Mild tricuspid regurgitation present. There is borderline pulmonary artery hypertension. The righ t ventricular systolic pressure, as measured by Doppler, is 33.54mmHg. Trace/mild (physiologic) pulmonic regurgitation. The aortic root size is normal. Normal inferior vena cava with normal inspiratory collapse consistent with estimated right atrial pre ssure of 5 mmHg. There is a trivial pericardial effusion present. CONCLUSIONS -------- 1. Sinus rhythm. 2. This was a technically difficult study with suboptimal views. 3. The left ventricle is moderately dilated. 4. There is moderate concentric left ventricular hypertrophy. 5. Overall left ventricular systolic function is severely impaired with, an EF between 25 - 30 %. 6. The right ventricle is mildly enlarged. 7. Normal LA size by volume 22+/-6 ml/m2. 8. The right atrium was not well visualized. 9. 5.0mg of Lumason was utilized for enhancement of images 10. Interatrial and interventricular septum intact. 11. The aortic valve was not well visualized. 12. The mitral valve leaflets are mildly thickened. 13. Mild mitral annular calcification present. 14. Mild mitral regurgitation is present. 15. Mild tricuspid regurgitation present. 16. There is borderline pulmonary artery hypertension. 17. The right ventricular systolic pressure, as measured by Doppler, is 33.54mmHg. 18. Trace/mild (physiologic) pulmonic regurgitation. 19. The aortic root size is normal. 20. Normal inferior vena cava with normal inspiratory collapse consistent with estimated right atrial pressure of 5 mmHg. 21. There is a trivial pericardial effusion present. NURSE SANE: Kristie Guerrero RDCS
[2019-07-20 20:18] LABS: Glucose,Whole Blood 187 mg/dL (75-99)
[2019-07-20] MEDS: METOPROLOL TARTRATE 12.5 MG TAB PO SCH (21:13)
[2019-07-20] MEDS: INSULIN DETEMIR (LEVEMIR) 100 UNIT/ML SYR SQ SCH (21:14)
[2019-07-21] MEDS: HEPARIN SOD,PORK IN 0.45% NACL 25,000 UNIT in 0.45% NACL 1 250ML.BAG IV SCH ×2 (03:19→15:56)
[2019-07-21 06:28] LABS: Glucose,Whole Blood 87 mg/dL (75-99)
[2019-07-21] MEDS: INSULIN ASPART (NovoLOG) 100 UNIT/ML VIAL SQ SCH ×5 (06:35→20:07)
[2019-07-21 08:02] LABS: Calcium 8.6 mg/dL (8.4-10.2); Potassium 4.2 mmol/L (3.5-5.1)
[2019-07-21] MEDS: IPRATROPIUM-ALBUTEROL 3 ML NEB INHALATION SCH ×4 (08:52→19:20)
--- NOTE | 2019-07-21 08:54 | XR ---
EXAMINATION TYPE: XR chest 1V portable DATE OF EXAM: 07/21/2019 Comparison: 07/19/2019 Clinical History: 64-year-old female follow up shortness of breath Findings: Heart borderline enlarged. Mild interstitial prominence. Left base underpenetrated and not well asses sed. Impression: Borderline heart size. Interstitial prominence probably technical due to magnification from large pat ient body habitus. Left base is underpenetrated and not adequately assessed.
[2019-07-21] MEDS: ASPIRIN 81 MG PO SCH ×2 (09:52→13:23)
[2019-07-21] MEDS: METOPROLOL TARTRATE 12.5 MG TAB PO SCH ×2 (09:52→20:07)
[2019-07-21] MEDS: FUROSEMIDE 10 MG/ML 4 ML VIAL IV SCH (09:52)
[2019-07-21] MEDS: OXYBUTYNIN 10 MG TAB.ER.24 PO SCH (09:53)
[2019-07-21] MEDS: LISINOPRIL 10 MG TAB PO SCH (09:53)
[2019-07-21 11:49] LABS: Glucose,Whole Blood 87 mg/dL (75-99)
[2019-07-21] MEDS ORDERED: ALPRAZolam 0.5 MG TAB PO PRN (13:20)
[2019-07-21] MEDS ORDERED: SODIUM CHLORIDE 0.9% 1,000 ML in EMPTY BAG 1 BAG IV ONE (13:20)
[2019-07-21] MEDS ORDERED: NITROGLYCERIN SL TABS 0.4 MG TAB SUBLINGUAL PRN (13:20)
[2019-07-21] MEDS ORDERED: ALPRAZolam 0.25 MG TAB PO PRN (13:20)
--- NOTE | 2019-07-21 13:41 | P.PN ---
Subjective Progress Note Date: 07/21/19 This is a very pleasant 64-year-old female patient with a past medical history significant for morbid obesity, diabetes, hypertension, and dyslipidemia as well as tonic lower extremities edema. She initially presented to the hospital with symptoms of progressively worsening shortness of breath and significant weight gain. She was seen in consultation yesterday by Dr. Thompson, and initiated on IV Lasix. He diuresed very well through the night last night, 4000 output. Blood pressure 124/70 with a heart rate in the 70s to 80s, 91% on room air. Sodium 140, potassium 4.2, BUN 32, creatinine 1.0. Patient continues to have a significant amount of bilateral peripheral edema. We will discontinue the IV push Lasix and start her on a Lasix drip today. Continue to monitor closely her intake and output along with daily weights and daily lytes BUN and creatinine. She also had an echo to Doppler performed which revealed an ejection fraction of 25-30%. Dr. Thompson had a lengthy discussion with the patient regarding cardiac catheterization as well as the risks and the benefits. We will tentatively s chedule this for tomorrow. Objective - Vital Signs Vital signs: Vital Signs Temp 97.8 F 07/21/19 08:00 Pulse 80 07/21/19 12:04 Resp 18 07/21/19 12:00 BP 124/70 07/21/19 12:00 Pulse Ox 91 L 07/21/19 12:00 Intake & Output 07/20/19 07/21/19 07/21/19 18:59 06:59 18:59 Intake Total 410.437 663.947 364.299 Output Total 1650 3500 1999 Balance -1239.563 -2836.053 -1635.701 Weight 151.5 kg 153.5 kg Intake: Intake, IV Titration 185.437 213.947 124.299 Amount Heparin Sod,Pork in 0.45% 185.437 213.947 124.299 NaCl 25,000 unit In 0.45 % NaCl 1 250ml.bag @ 6.59 UNITS/KG/HR 9.984 mls/hr IV .Q24H [facility] Rx#: [id number] Oral 225 450 240 Output: Urine 1650 3500 1999 Other: Voiding Method Indwelling Catheter Indwelling Catheter Indwelling Catheter - Exam GENERAL EXAM: Alert, a pleasant, 64-year-old obese white female, no acute distress at the time of my examination HEAD: Normocephalic/atraumatic. EYES: Normal reaction of pupils, equal size. Conjunctiva pink, sclera white. NOSE: Clear with pink turbinates. THROAT: No erythema or exudates. NECK: No masses, no JVD, no thyroid enlargement, no adenopathy. CHEST: No chest wall deformity. Symmetrical expansion. LUNGS: Equal air entry with no crackles, wheeze, rhonchi or dullness. Diminished to the bases. CVS: Regular rate and rhythm, normal S1 and S2, no gallops, no murmurs, no rubs ABDOMEN: Soft, obese, nontender. No hepatosplenomegaly, normal bowel sounds, no guarding or rigidity. EXTREMITIES: No clubbing, chronic venous stasis changes present to lower extremities, suspect some chronic swelling to lower extremities no cyanosis, 2+ pulses and upper and lower extremities. 2+ lower extremity edema MUSCULOSKELETAL: Muscle strength and tone normal. SPINE: No scoliosis or deformity SKIN: No rashes CENTRAL NERVOUS SYSTEM: Alert and oriented -3. No focal deficits, tone is normal in all 4 extremities. PSYCHIATRIC: Alert and oriented -3. Appropriate affect. Intact judgment and insight. - Labs CBC & Chem 7: 07/19/19 11:59 07/21/19 06:36 Labs: Abnormal Lab Results - Last 24 Hours (Table) 07/20/19 07/20/19 07/20/19 Range/Units 15:25 16:49 20:16 APTT 55.4 H (22.0-30.0) sec Carbon Dioxide (22-30) mmol/L BUN (7-17) mg/dL Glucose (74-99) mg/dL POC Glucose (mg/dL) 192 H 187 H (75-99) mg/dL 07/21/19 07/21/19 Range/Units 06:36 06:36 APTT 68.6 H (22.0-30.0) sec Carbon Dioxide 32 H (22-30) mmol/L BUN 32 H (7-17) mg/dL Glucose 68 L (74-99) mg/dL POC Glucose (mg/dL) (75-99) mg/dL Assessment and Plan Plan: Assessment and plan: #1. Acute hypoxemic respiratory failure related to acute exacerbation of congestive heart failure systolic acute on chronic, ejection fraction 25-30% #2. Possible non-ST elevated myocardial infarction #3. Significant weight gain of around 40 pounds in the last month #4. Morbid obesity #5. Lifetime nonsmoker #6. diabetes mellitus type 2, with diabetic neuropathy #7. History of MRSA infection and nonhealing wound in the left leg Plan We will discontinue the IV push Lasix and start the patient on a Lasix drip today. Continue to monitor the intake and output along with daily weights and daily lytes BUN and creatinine. Patient also will be scheduled to undergo cardiac catheterization tomorrow with Dr. Thompson, the risks and the benefits were explained in detail and she is willing to proceed. DNP note has been reviewed, I agree with a documented findings and plan of care. Patient was seen and examined.
--- NOTE | 2019-07-21 14:29 | P.PN ---
Subjective Progress Note Date: 07/21/19 Principal diagnosis: dyspnea, pleural effusion, abnormal chest x-ray on 07/20/2019 patient seen in follow-up on selective care unit. She is awake and alert, feeling much better, breathing much easier, she has been diuresed, lower extremity edema has improved, and abdominal distention has improved, she is currently at 2 L of oxygen with pulse ox between 94 and 99%, no complaint of chest pain, sounds are clear, diminished at the bases, no rhonchi, no wheezing, no phlegm production. she remains on heparin infusion for elevated troponins, and she's had no episodes of chest pain, patient is on IV Lasix at 40 mg every 12 hours, and she is in -1044 mL fluid balance over the last 24 hours. echocardiogram results have been pending. On 07/21/2019 patient seen in follow-up on selective care unit. Feeling much better, breathing much easier, lung sounds are clear on today's examination. Today's chest x-ray was reviewed showing mild interstitial prominence, patient has been diuresed, her abdominal distention abdominal wall edema and lower extremity edema has improved. She is in -1.3 L over the last 24 hours. His labs have been reviewed, showing sodium of 140, potassium 4.2, chloride is 1, CO2 32, BUN 32, creatinine is 1.01. Hemodynamically patient is stable, she is in sinus mechanism with a controlled rate of 77 BPM. Echocardiogram has been completed, showing severely impaired left ventricular systolic function with an EF between 25-30% mild MR, mild TR, borderline pulmonary artery hypertension, right-sided pressures of 33.5 mmHg. Troponin is slightly elevated, cardiology is following, and is considering possibility of coronary angiogram. She remains on heparin infusion per weight-based protocol, she has also been started on Lasix at 10 mg per hour. Objective - Vital Signs Vital signs: Vital Signs Temp 97.8 F 07/21/19 08:00 Pulse 80 07/21/19 12:04 Resp 18 07/21/19 12:00 BP 124/70 07/21/19 12:00 Pulse Ox 91 L 07/21/19 12:00 Intake & Output 07/20/19 07/21/19 07/21/19 18:59 06:59 18:59 Intake Total 410.437 663.947 604.299 Output Total 1650 3500 1999 Balance -1239.563 -2836.053 -1395.701 Weight 151.5 kg 153.5 kg Intake: Intake, IV Titration 185.437 213.947 124.299 Amount Heparin Sod,Pork in 0.45% 185.437 213.947 124.299 NaCl 25,000 unit In 0.45 % NaCl 1 250ml.bag @ 6.59 UNITS/KG/HR 9.984 mls/hr IV .Q24H [facility] Rx#: [id number] Oral 225 450 480 Output: Urine 1650 3500 1999 Other: Voiding Method Indwelling Catheter Indwelling Catheter Indwelling Catheter # Voids 0 - Exam GENERAL EXAM: Alert, a pleasant, 64-year-old obese white female, currently on 2 L of oxygen with pulse ox of 97% resting comfortably on the gurney in the emergency test department helper: Normocephalic/atraumatic. EYES: Normal reaction of pupils, equal size. Conjunctiva pink, sclera white. NOSE: Clear with pink turbinates. THROAT: No erythema or exudates. NECK: No masses, no JVD, no thyroid enlargement, no adenopathy. CHEST: No chest wall deformity. Symmetrical expansion. LUNGS: Equal air entry with no crackles, wheeze, rhonchi or dullness. CVS: Regular rate and rhythm, normal S1 and S2, no gallops, no murmurs, no rubs ABDOMEN: Soft, nontender. No hepatosplenomegaly, normal bowel sounds, no guarding or rigidity. EXTREMITIES: No clubbing, chronic venous stasis changes present to lower extremities, suspec t some chronic swelling to lower extremities no cyanosis, 2+ pulses and upper and lower extremities. 2+ lower extremity edema MUSCULOSKELETAL: Muscle strength and tone normal. SPINE: No scoliosis or deformity SKIN: No rashes CENTRAL NERVOUS SYSTEM: Alert and oriented -3. No focal deficits, tone is normal in all 4 extremities. PSYCHIATRIC: Alert and oriented -3. Appropriate affect. Intact judgment and insight. - Labs CBC & Chem 7: 07/19/19 11:59 07/21/19 06:36 Labs: Abnormal Lab Results - Last 24 Hours (Table) 07/20/19 07/20/19 07/20/19 Range/Units 15:25 16:49 20:16 APTT 55.4 H (22.0-30.0) sec Carbon Dioxide (22-30) mmol/L BUN (7-17) mg/dL Glucose (74-99) mg/dL POC Glucose (mg/dL) 192 H 187 H (75-99) mg/dL 07/21/19 07/21/19 Range/Units 06:36 06:36 APTT 68.6 H (22.0-30.0) sec Carbon Dioxide 32 H (22-30) mmol/L BUN 32 H (7-17) mg/dL Glucose 68 L (74-99) mg/dL POC Glucose (mg/dL) (75-99) mg/dL Assessment and Plan Plan: Assessment: #1. Acute hypoxemic respiratory failure related to acute exacerbation of congestive heart failure with severely impaired left ventricular systolic function and EF of 25-30% #2. Rule out non-ST elevated myocardial infarction, patient presented with mildly abnormal cardiac enzymes, cardiology is following #3. Significant weight gain of around 40 pounds in the last month #4. Morbid obesity #5. Lifetime nonsmoker #6. diabetes mellitus type 2, with diabetic neuropathy #7. History of MRSA infection and nonhealing wound in the left leg #8. Suspect obstructive sleep apnea, will need outpatient evaluation Plan: Continue diuretics per cardiology recommendations, patient has been diuresed, she is breathing easier, she still has significant edema involving her lower extremities, and abdomen, she is being started on Lasix infusion, echocardiogram results have been noted, patient has severely impaired left ventricular systolic function. Overall she is breathing easier, no complaints of chest pain, cardiology is following and is considering coronary angiogram. From pulmonary perspective patient will need outpatient follow-up in the office and outpatient evaluation for suspected obstructive sleep apnea I performed a history & physical examination of the patient and discussed their management with my nurse practitioner, Vandana Curry. I reviewed the nurse practitioner's note and agree with the documented findings and plan of care. Lung sounds are positive for diminished breath sounds. The findings and the impression was discussed with the patient. I attest to the documentation by the nurse practitioner. Time with Patient: Less than 30
[2019-07-21] MEDS: FUROSEMIDE 100 MG in SODIUM CHLORIDE 0.9% 90 ML IV SCH (15:55)
--- NOTE | 2019-07-21 15:58 | P.PN ---
Subjective Progress Note Date: 07/21/19 Principal diagnosis: 64-year-old female was admitted with shortness of breath and weight gain of 44 pounds and patient is being treated for heart failure exacerbation patient may have congestive heart failure left ventricular dysfunction and/or right-sided heart failure and pulmonary hypertension. Echocardiogram is still pending. Patient's swelling in the both legs improved significantly. Patient remains on Lasix patient feels much better today. But still short of breath Constitutional: Denied any fatigue denied any fever. Cardio vascular: denied any chest pain, palpitations Gastrointestinal denied any nausea vomiting Pulmonary: As mentioned in HPI Neurologic denied any new focal deficits All inpatient medications were reviewed and appropriate changes in these me dications as dictated in the interval history and assessment and plan. 07/21/2019 Patient is seen and evaluated in follow-up currently sitting up in the chair with bilateral lower extremities elevated that are quite edematous although patient states this is improved from yesterday. Patient remains on Lasix and will continue at this time. Cardiology and pulmonary following. Patient states her shortness of breath has resolved and patient is currently on room air. She does not normally wear oxygen in the home setting. Patient currently remains on a heparin drip and will continue at this time. Creatinine slightly improved at 1.01, sodium is 140, covid testing was negative. PT/OT worked with the patient requiring some minimal assistance today although continues to need some assistance with the use of a walker. Patient is refusing rehab upon discharge. No reports of chest pain, shortness of breath, or palpitations. Patient is afebrile. No reports of nausea or vomiting and patient is tolerating diet. Objective - Vital Signs Vital signs: Vital Signs Temp 97.8 F 07/21/19 08:00 Pulse 81 07/21/19 15:38 Resp 16 07/21/19 15:38 BP 124/70 07/21/19 12:00 Pulse Ox 92 L 07/21/19 15:26 Intake & Output 07/20/19 07/21/19 07/21/19 18:59 06:59 18:59 Intake Total 410.437 663.947 604.299 Output Total 1650 3500 1999 Balance -1239.563 -2836.053 -1395.701 Weight 151.5 kg 153.5 kg Intake: Intake, IV Titration 185.437 213.947 124.299 Amount Heparin Sod,Pork in 0.45% 185.437 213.947 124.299 NaCl 25,000 unit In 0.45 % NaCl 1 250ml.bag @ 6.59 UNITS/KG/HR 9.984 mls/hr IV .Q24H [facility] Rx#: [id number] Oral 225 450 480 Output: Urine 1650 3500 2000 Other: Voiding Method Indwelling Catheter Indwelling Catheter Indwelling Catheter # Voids 0 - Exam GENERAL: The patient is alert and oriented x3, not in any acute distress. Morbidly obese with BMI of 54.6 HEENT: Pupils are round and equally reacting to light. EOMI. No scleral icterus. No conjunctival pallor. Normocephalic, atraumatic. No pharyngeal erythema. No thyromegaly. CARDIOVASCULAR: S1 and S2 present. No murmurs, rubs, or gallops. PULMONARY: Chest is clear to auscultation, no wheezing or crackles. ABDOMEN: Soft, nontender, nondistended, normoactive bowel sounds. No palpable organomegaly. Slaughter catheter noted MUSCULOSKELETAL: No joint swelling or deformity. EXTREMITIES: No cyanosis, clubbing, extensive bilateral pedal edema with chronic venous stasis and venous stasis dermatosis of both legs with more healed ulcers, swelling in both legs intermittently improved NEUROLOGICAL: Gross neurological examination did not reveal any focal deficits. SKIN: No rashes. - Labs CBC & Chem 7: 07/19/19 11:59 07/21/19 06:36 Labs: Abnormal Lab Results - Last 24 Hours (Table) 07/20/19 07/20/19 07/20/19 Range/Units 15:25 16:49 20:16 APTT 55.4 H (22.0-30.0) sec Carbon Dioxide (22-30) mmol/L BUN (7-17) mg/dL Glucose (74-99) mg/dL POC Glucose (mg/dL) 192 H 187 H (75-99) mg/dL 07/21/19 07/21/19 Range/Units 06:36 06:36 APTT 68.6 H (22.0-30.0) sec Carbon Dioxide 32 H (22-30) mmol/L BUN 32 H (7-17) mg/dL Glucose 68 L (74-99) mg/dL POC Glucose (mg/dL) (75-99) mg/dL Assessment and Plan Assessment: -Bilateral pedal edema shortness of breath patient most probably has severe pulmonary hypertension from undiagnosed sleep apnea including to extensive pedal edema fluid retention and right-sided heart failure I cannot completely rule out left-sided heart failure. Echo report shows moderate concentric left ventric ular hypertrophy with overall left ventricular systolic function is severely impaired with an EF of 25-30% with trivial pericardial effusion present along with borderline pulmonary artery hypertension, mild mitral and tricuspid regurgitation also present. Patient will be initiated on a Lasix drip and continued heparin. Patient scheduled to undergo possible cardiac catheterization tomorrow morning -Acute exacerbation of congestive heart failure, acute on chronic systolic with an ejection fraction of 25-30% -Hyponatremia hypervolemic hyponatremia improving with IV Lasix -Chronic kidney disease stage III secondary to diabetic nephropathy -Mildly elevated troponin secondary to shortness of breath -Mildly elevated liver enzymes secondary to hepatic congestion -Obesity with sleep apnea and possible based stay hypoventilation syndrome -Type 2 diabetes mellitus: The patient will be resumed on home regimen along with sliding scale -DVT prophylaxis with heparin drip
[2019-07-21 16:57] LABS: Glucose,Whole Blood 138 mg/dL (75-99)
[2019-07-21 19:56] LABS: Glucose,Whole Blood 200 mg/dL (75-99)
[2019-07-21] MEDS: INSULIN DETEMIR (LEVEMIR) 100 UNIT/ML SYR SQ SCH (20:07)
[2019-07-22] MEDS: FUROSEMIDE 100 MG in SODIUM CHLORIDE 0.9% 90 ML IV SCH ×2 (03:08→12:44)
[2019-07-22] MEDS: HEPARIN SOD,PORK IN 0.45% NACL 25,000 UNIT in 0.45% NACL 1 250ML.BAG IV SCH ×2 (03:09→10:00)
[2019-07-22] MEDS ORDERED: ASPIRIN 325 MG TAB PO ONE (05:00)
[2019-07-22] MEDS ORDERED: ATORVASTATIN 80 MG TAB PO ONE (05:00)
[2019-07-22 06:10] LABS: Glucose,Whole Blood 66 mg/dL (75-99)
[2019-07-22] MEDS: INSULIN ASPART (NovoLOG) 100 UNIT/ML VIAL SQ SCH ×4 (06:23→20:59)
[2019-07-22 06:28] LABS: Glucose,Whole Blood 85 mg/dL (75-99)
[2019-07-22] MEDS: METOPROLOL TARTRATE 12.5 MG TAB PO SCH ×2 (07:50→21:01)
[2019-07-22] MEDS: OXYBUTYNIN 10 MG TAB.ER.24 PO SCH (07:51)
[2019-07-22] MEDS: LISINOPRIL 10 MG TAB PO SCH (07:51)
[2019-07-22] MEDS: IPRATROPIUM-ALBUTEROL 3 ML NEB INHALATION SCH ×4 (07:55→19:59)
[2019-07-22 08:24] LABS: Calcium 8.8 mg/dL (8.4-10.2)
[2019-07-22 08:28] LABS: Potassium 4.7 mmol/L (3.5-5.1)
[2019-07-22] MEDS ORDERED: LIDOCAINE 1% INJ 10MG/ML (20 ML MDV) ONE (10:47)
[2019-07-22] MEDS ORDERED: VERAPAMIL 2.5 MG/ML 2 ML AMP ONE (10:47)
[2019-07-22] MEDS ORDERED: HEPARIN SODIUM 1,000 UN/ML (10ML VL) ONE (10:48)
[2019-07-22] MEDS ORDERED: LIDOCAINE 1% INJ 10MG/ML (20 ML MDV) SQ ONE (11:14)
[2019-07-22] MEDS ORDERED: MIDAZOLAM 2 MG/2 ML VIAL IVP ONE (11:14)
[2019-07-22] MEDS: VERAPAMIL SYRINGE (5 MG/10 ML) INTRAARTER ONE ×2 (11:17→12:11)
[2019-07-22] MEDS ORDERED: IV FLUID CONTINUATION 1,000 ML IV ONE (11:17)
[2019-07-22] MEDS: MIDAZOLAM 2 MG/2 ML VIAL IVP ONE ×2 (11:22→12:02)
[2019-07-22] MEDS ORDERED: BIVALIRUDIN BOLUS 250 MG/50 ML IV ONE (11:29)
[2019-07-22] MEDS ORDERED: BIVALIRUDIN 250 MG in SODIUM CHLORIDE 0.9% 50 ML IV ONE ×2 (11:30→11:43)
[2019-07-22] MEDS ORDERED: HYDROmorphone 1 MG/ML 1 ML SYRINGE ONE (11:33)
[2019-07-22] MEDS ORDERED: HYDROmorphone 1 MG/ML 1 ML SYRINGE IVP ONE (11:35)
[2019-07-22] MEDS ORDERED: IOPAMIDOL-370 125ML BTL INJ ONE (11:42)
[2019-07-22] MEDS ORDERED: NITROGLYCERIN 1000MCG/10ML SYRINGE INTRACORON ONE (11:46)
[2019-07-22] MEDS ORDERED: SODIUM CHLORIDE 0.9% 1,000 ML IV ONE (11:48)
[2019-07-22] MEDS ORDERED: IOPAMIDOL-370 100ML BTL INJ ONE (12:11)
[2019-07-22] MEDS ORDERED: PRASUGREL 10 MG TAB ONE (12:12)
[2019-07-22] MEDS ORDERED: MAG HYDROX/AL HYDROX/SIMETH 30 ML CUP PO PRN (12:20)
[2019-07-22] MEDS ORDERED: RX INFO: IV CONTRAST WAS GIVEN 1 EACH MISC MISCELLANE PRN (12:20)
[2019-07-22] MEDS ORDERED: ZOLPIDEM 5 MG TAB PO PRN (12:20)
[2019-07-22] MEDS ORDERED: ATROPINE SULFATE 0.1 MG/ML 10ML SYRINGE IV PRN (12:20)
[2019-07-22] MEDS ORDERED: NITROGLYCERIN SL TABS 0.4 MG TAB SUBLINGUAL PRN (12:20)
[2019-07-22] MEDS ORDERED: PRASUGREL 10 MG TAB PO ONE (12:28)
[2019-07-22] MEDS ORDERED: SODIUM CHLORIDE 0.9% 1,000 ML IV SCH (12:30)
[2019-07-22 12:54] LABS: Glucose,Whole Blood 110 mg/dL (75-99)
[2019-07-22] MEDS: FUROSEMIDE 10 MG/ML 4 ML VIAL IV SCH ×2 (13:14→21:01)
--- NOTE | 2019-07-22 15:36 | P.PN ---
Subjective Progress Note Date: 07/22/19 Principal diagnosis: 64-year-old female was admitted with shortness of breath and weight gain of 44 pounds and patient is being treated for heart failure exacerbation patient may have congestive heart failure left ventricular dysfunction and/or right-sided heart failure and pulmonary hypertension. Echocardiogram is still pending. Patient's swelling in the both legs improved significantly. Patient remains on Lasix patient feels much better today. But still short of breath Constitutional: Denied any fatigue denied any fever. Cardio vascular: denied any chest pain, palpitations Gastrointestinal denied any nausea vomiting Pulmonary: As mentioned in HPI Neurologic denied any new focal deficits All inpatient medications were reviewed and appropriate changes in these me dications as dictated in the interval history and assessment and plan. 07/21/2019 Patient is seen and evaluated in follow-up currently sitting up in the chair with bilateral lower extremities elevated that are quite edematous although patient states this is improved from yesterday. Patient remains on Lasix and will continue at this time. Cardiology and pulmonary following. Patient states her shortness of breath has resolved and patient is currently on room air. She does not normally wear oxygen in the home setting. Patient currently remains on a heparin drip and will continue at this time. Creatinine slightly improved at 1.01, sodium is 140, covid testing was negative. PT/OT worked with the patient requiring some minimal assistance today although continues to need some assistance with the use of a walker. Patient is refusing rehab upon discharge. No reports of chest pain, shortness of breath, or palpitations. Patient is afebrile. No reports of nausea or vomiting and patient is tolerating diet. 07/22/2019 Patient is seen and evaluated in follow-up with no acute overnight issues. Patient awaiting to undergo cardiac catheterization with cardiology this afternoon. She remains on IV heparin along with IV Lasix drip and will continue at this time. Patient is diuresing well an indwelling Slaughter catheter is noted to have a large amount of output. Patient continues on room air with no reports of chest pain, shortness of breath, or palpitations. Patient is afebrile. No reports of nausea or vomiting and patient is tolerating diet. Sodium today is 139, potassium is 4.7, creatinine is slightly elevated at 1.10. Will repeat a.m. labs. Objective - Vital Signs Vital signs: Vital Signs Temp 98.1 F 07/22/19 07:55 Pulse 69 07/22/19 13:25 Resp 18 07/22/19 13:10 BP 139/61 07/22/19 13:25 Pulse Ox 98 07/22/19 13:25 Intake & Output 07/21/19 07/22/19 07/22/19 18:59 06:59 18:59 Intake Total 942.167 279.96 1130.864 Output Total 4800 5500 2600 Balance -3857.833 -5220.04 -1469.136 Weight 157 kg Intake: IV 1010 Intake, IV Titration 222.167 279.96 120.864 Amount Furosemide 100 mg In 100 Sodium Chloride 0.9% 90 ml @ 10 MG/HR 10 mls/hr IV .Q10H [facility] Rx#: [id number] Heparin Sod,Pork in 0.45% 222.167 179.96 120.864 NaCl 25,000 unit In 0.45 % NaCl 1 250ml.bag @ 6.59 UNITS/KG/HR 9.984 mls/hr IV .Q24H [facility] Rx#: [id number] Oral 720 Output: Urine 4800 5500 2600 Other: Voiding Method Indwelling Catheter Indwelling Catheter Indwelling Catheter # Voids 0 # Bowel Movements 0 - Exam GENERAL: The patient is alert and oriented x3, not in any acute distress. Morbidly obese with BMI of 54.6 HEENT: Pupils are round and equally reacting to light. EOMI. No scleral icterus. No conjunctival pallor. Normocephalic, atraumatic. No pharyngeal erythema. No thyromegaly. CARDIOVASCULAR: S1 and S2 present. No murmurs, rubs, or gallops. PULMONARY: Chest is clear to auscultation, no wheezing or crackles. ABDOMEN: Soft, nontender, nondistended, normoactive bowel sounds. No palpable organomegaly. Slaughter catheter noted MUSCULOSKELETAL: No joint swelling or deformity. EXTREMITIES: No cyanosis, clubbing, extensive bilateral pedal edema with chronic venous stasis and venous stasis dermatosis of both legs with more healed ulcers, swelling in both legs intermittently improved NEUROLOGICAL: Gross neurological examination did not reveal any focal deficits. SKIN: No rashes. - Labs CBC & Chem 7: 07/19/19 11:59 07/22/19 06:27 Labs: Abnormal Lab Results - Last 24 Hours (Table) 07/21/19 07/21/19 07/21/19 Range/Units 15:35 16:55 19:54 APTT 63.4 H (22.0-30.0) sec Chloride (98-107) mmol/L Carbon Dioxide (22-30) mmol/L BUN (7-17) mg/dL Creatinine (0.52-1.04) mg/dL Glucose (74-99) mg/dL POC Glucose (mg/dL) 138 H 200 H (75-99) mg/dL 07/22/19 07/22/19 07/22/19 Range/Units 06:05 06:27 07:44 APTT 44.8 H (22.0-30.0) sec Chloride 95 L (98-107) mmol/L Carbon Dioxide 37 H (22-30) mmol/L BUN 30 H (7-17) mg/dL Creatinine 1.10 H (0.52-1.04) mg/dL Glucose 68 L (74-99) mg/dL POC Glucose (mg/dL) 66 L (75-99) mg/dL 07/22/19 Range/Units 12:50 APTT (22.0-30.0) sec Chloride (98-107) mmol/L Carbon Dioxide (22-30) mmol/L BUN (7-17) mg/dL Creatinine (0.52-1.04) mg/dL Glucose (74-99) mg/dL POC Glucose (mg/dL) 110 H (75-99) mg/dL Assessment and Plan Assessment: -Bilateral pedal edema shortness of breath patient most probably has severe p ulmonary hypertension from undiagnosed sleep apnea including to extensive pedal edema fluid retention and right-sided heart failure I cannot completely rule out left-sided heart failure. Echo report shows moderate concentric left ventricular hypertrophy with overall left ventricular systolic function is severely impaired with an EF of 25-30% with trivial pericardial effusion present along with borderline pulmonary artery hypertension, mild mitral and tricuspid regurgitation also present. Patient will be initiated on a Lasix drip and continued heparin. Patient awaiting to undergo cardiac catheterization this afternoon -Acute exacerbation of congestive heart failure, acute on chronic systolic with an ejection fraction of 25-30% -Hyponatremia hypervolemic hyponatremia improving with IV Lasix -Chronic kidney disease stage III secondary to diabetic nephropathy -Mildly elevated troponin secondary to shortness of breath -Mildly elevated liver enzymes secondary to hepatic congestion -Obesity with sleep apnea and possible based stay hypoventilation syndrome -Type 2 diabetes mellitus: The patient will be resumed on home regimen along with sliding scale -DVT prophylaxis with heparin drip Plan: Continue current medications, management, and symptomatic treatment. Patient scheduled to go undergo cardiac catheterization with cardiology this afternoon will await report. Patient is currently maintained on a Lasix drip and will continue at this time along with IV heparin. Further recommendations to follow.
--- NOTE | 2019-07-22 16:17 | CC ---
CARDIAC CATHETERIZATION REPORT DATE OF SERVICE: 07/22/2019 PERFORMING PHYSICIAN: Dallas Romero M.D. PROCEDURES PERFORMED: 1. Selective right and left coronary angiogram. 2. Left heart catheterization. 3. Successful stenting of the left circumflex coronary artery using a 2.0 x 15 mm Srinivas drug-eluting stent and a 3.0 x 15 mm Xience drug-eluting stent with excellent angiographic results and reduction of stenosis from 100% to 0%. 4. Successful stenting of the mid left anterior descending artery using a 3.0 x 33 mm Xience drug-eluting stent with excellent angiographic results and reduction of stenosis from 80% to 0%. INDICATION: This is a 64-year-old female patient with obesity, diabetes, hypertension and dyslipidemia who was admitted to the hospital with shortness of breath. She was ruled in for acute coronary event. She was diagnosed with congestive heart failure secondary to systolic dysfunction. She underwent an echocardiogram which revealed severe cardiomyopathy. Because of that, heart catheterization was advised. APPROACH: Right radial artery. COMPLICATIONS: None. LEVEL OF SEDATION: Moderate, with sedation length of 62 minutes. PROCEDURE DESCRIPTION: After obtaining informed consent, the patient was brought to the cardiac earth science laboratory technician. The right radial artery was cannulated using micropuncture technique. The micropuncture wire passed easily. Then I placed a 6-Armenian sheath in the right radial artery. After that I gave the patient 2 mg of verapamil IA. Selective right and left coronary angiogram was performed using JR4 and JL3.5 catheters. Left heart catheterization was performed using the diagnostic JL3.5 catheter. After that I did intervene on the LCX and LAD. Please see separate paragraph for that. SELECTIVE CORONARY ANGIOGRAM: 1. The right coronary artery is a large-caliber vessel. It is a dominant vessel. The RCA has mild disease only distally. It bifurcates after that into PDA and PLV branches. Both appeared to be angiographically normal. 2. The LCX is a large-caliber vessel. It is a nondominant vessel. The proximal left circumflex is angiographically normal. It gives rise to the first obtuse marginal branch which is a large-caliber vessel and seems to be angiographically normal. Then it gives rise to a second OM branch which appeared to be occluded in the proximal and mid portions. 3. The proximal LAD appeared to have mild disease only. The mid LAD has a long tubular lesion that appeared to be in the range of 80%. The LAD distally appeared to have mild disease only. 4. HEMODYNAMICS: The LVEDP was 18 mmHg without significant gradient across the aortic valve. PERCUTANEOUS CORONARY INTERVENTION OF THE LEFT CIRCUMFLEX AND LEFT ANTERIOR DESCENDING CORONARY ARTERY: Anticoagulation was initiated using Angiomax. Subsequently I tried to engage the left main using JL3.5 guide, but it was large. So because of that I decided to go with JL3 guide. With that I was able to engage the left main. Subsequently I did cross the lesion in the left circumflex coronary artery/OM2 using a Whisper wire. After that, balloon angioplasty was performed using a 2.0 x 12 mm balloon. Subsequently I deployed 2 stents in OM2. The first stent was a 2.0 x 15 mm [place] drug-eluting stent where the stent was positioned under fluoroscopic guidance and deployed under its nominal pressure. The second stent was a 3.0 x 15 mm Xience AWAIS where the stent was positioned under fluoroscopic guidance as well with about 1 mm overlap between this stent and the previous stent. The second stent was deployed under 14 atmospheres for 20 seconds. The area of overlap between the 2 stents was dilated using the stent balloon. The final angiogram showed good angiographic results. Subsequently I tried to direct my Whisper wire into the LAD, but the wire would not go to the LAD, and I was able to go to the LAD using a run-through wire. The wire was advanced all the way to the distal LAD. After that I did direct stenting on the LAD lesion using a 3.0 x 33 mm Xience AWAIS where the stent was positioned again under fluoroscopic guidance and deployed under 14 atmospheres for 20 seconds. The following angiogram showed good angiographic results and the procedure was completed without any complication. CONCLUSION: 1. Severe ischemic cardiomyopathy in this 64-year-old female patient who was admitted with shortness of breath and she was found to have mildly abnormal cardiac enzymes and severe LV dysfunction. 2. Severe 2-vessel coronary artery disease. The patient was found to have occluded OM2 of the left circumflex and severe disease involving the LAD. 3. Successful stenting of OM2 of the left circumflex using 2 drug-eluting stents with excellent angiographic results. 4. Successful stenting of the mid LAD using one drug-eluting stent with excellent angiographic results. POST-PROCEDURE MANAGEMENT: 1. Dual anti-platelet therapy. 2. Risk factor modifications. 3. Follow up with the patient. MMODL / IJN: [id number] /
[2019-07-22 17:05] LABS: Glucose,Whole Blood 103 mg/dL (75-99)
[2019-07-22 20:12] LABS: Glucose,Whole Blood 154 mg/dL (75-99)
[2019-07-22] MEDS: INSULIN DETEMIR (LEVEMIR) 100 UNIT/ML SYR SQ SCH (21:01)
[2019-07-22] MEDS ORDERED: ACETAMINOPHEN TAB 325 MG TAB PO PRN (21:01)
[2019-07-23] LABS: Glucose,Whole Blood 135 mg/dL (75-99)
[2019-07-23 06:23] LABS: Glucose,Whole Blood 120 mg/dL (75-99)
[2019-07-23] MEDS: INSULIN ASPART (NovoLOG) 100 UNIT/ML VIAL SQ SCH ×4 (06:26→20:47)
[2019-07-23] MEDS: IPRATROPIUM-ALBUTEROL 3 ML NEB INHALATION SCH ×4 (07:34→20:17)
[2019-07-23 07:35] LABS: HCT 39.4 % (34.0-46.0); HGB 12.4 gm/dL (11.4-16.0); Hypochromasia Moderate; MCH 26.7 pg (25.0-35.0); MCHC 31.6 g/dL (31.0-37.0); MCV 84.5 fL (80.0-100.0); Mean Platelet Volume 7.4; Platelet Count 389 k/uL (150-450); RBC 4.66 m/uL (3.80-5.40); RDW 14.4 % (11.5-15.5); WBC 9.1 k/uL (3.8-10.6)
[2019-07-23 08:03] LABS: Calcium 9.1 mg/dL (8.4-10.2); Potassium 3.9 mmol/L (3.5-5.1)
[2019-07-23] MEDS: OXYBUTYNIN 10 MG TAB.ER.24 PO SCH (09:23)
[2019-07-23] MEDS: METOPROLOL TARTRATE 12.5 MG TAB PO SCH ×2 (09:23→20:46)
[2019-07-23] MEDS: ASPIRIN 81 MG PO SCH (09:23)
[2019-07-23] MEDS: FUROSEMIDE 40 MG TAB PO SCH (09:24)
[2019-07-23] MEDS: LISINOPRIL 10 MG TAB PO SCH (09:24)
--- NOTE | 2019-07-23 10:33 | P.PN ---
Subjective Progress Note Date: 07/23/19 This is a very pleasant 64-year-old female patient with a past medical history significant for morbid obesity, diabetes, hypertension, and dyslipidemia as well as tonic lower extremities edema. She initially presented to the hospital with symptoms of progressively worsening shortness of breath and significant weight gain. She was seen in consultation yesterday by Dr. Thompson, and initiated on IV Lasix. He diuresed very well through the night last night, 4000 output. Blood pressure 124/70 with a heart rate in the 70s to 80s, 91% on room air. Sodium 140, potassium 4.2, BUN 32, creatinine 1.0. Patient continues to have a significant amount of bilateral peripheral edema. We will discontinue the IV push Lasix and start her on a Lasix drip today. Continue to monitor closely her intake and output along with daily weights and daily lytes BUN and creatinine. She also had an echo to Doppler performed which revealed an ejection fraction of 25-30%. Dr. Thompson had a lengthy discussion with the patient regarding cardiac catheterization as well as the risks and the benefits. We will tentatively s chedule this for tomorrow. 07/23/2019 Patient was taken to the cardiac catheterization lab yesterday where she underwent angioplasty and stenting of the LAD and circumflex. She was seen and examined this morning sitting up in the chair at bedside, feels well, denies any chest pain and her breathing is stable, she diuresed again well through the night last night. We will discontinue her IV Lasix, put her on oral diuretics. Remove the Slaughter catheter. Her lytes BUN and creatinine from this morning remain pending, if they are stable she should be able to be discharged home from our perspective. Objective - Vital Signs Vital signs: Vital Signs Temp 98.2 F 07/23/19 03:15 Pulse 80 07/23/19 07:46 Resp 18 07/23/19 03:15 BP 160/72 07/23/19 03:15 Pulse Ox 95 07/23/19 03:15 Intake & Output 07/22/19 07/23/19 07/23/19 18:59 06:59 18:59 Intake Total 1366.864 Output Total 3200 3575 Balance -1833.136 -3575 Weight 149.3 kg Intake: IV 1010 Intake, IV Titration 120.864 Amount Heparin Sod,Pork in 0.45% 120.864 NaCl 25,000 unit In 0.45 % NaCl 1 250ml.bag @ 6.59 UNITS/KG/HR 9.984 mls/hr IV .Q24H [facility] Rx#: [id number] Oral 236 Output: Urine 3200 3575 Other: Voiding Method Indwelling Catheter Indwelling Catheter - Exam GENERAL EXAM: Alert, a pleasant, 64-year-old obese white female, no acute distress at the time of my examination HEAD: Normocephalic/atraumatic. EYES: Normal reaction of pupils, equal size. Conjunctiva pink, sclera white. NOSE: Clear with pink turbinates. THROAT: No erythema or exudates. NECK: No masses, no JVD, no thyroid enlargement, no adenopathy. CHEST: No chest wall deformity. Symmetrical expansion. LUNGS: Equal air entry with no crackles, wheeze, rhonchi or dullness. CVS: Regular rate and rhythm, normal S1 and S2, no gallops, no murmurs, no rubs ABDOMEN: Soft, obese, nontender. No hepatosplenomegaly, normal bowel sounds, no guarding or rigidity. EXTREMITIES: No clubbing, chronic venous stasis changes present to lower extremities, suspect some chronic swelling to lower extremities no cyanosis, 2+ pulses and upper and lower extremities. 1+ lower extremity edema. Right radial site clean and dry, good distal pulse. MUSCULOSKELETAL: Muscle strength and tone normal. SPINE: No scoliosis or deformity SKIN: No rashes CENTRAL NERVOUS SYSTEM: Alert and oriented -3. No focal deficits, tone is normal in all 4 extremities. PSYCHIATRIC: Alert and oriented -3. Appropriate affect. Intact judgment and insight. - Labs CBC & Chem 7: 07/23/19 07:12 07/23/19 07:12 Labs: Abnormal Lab Results - Last 24 Hours (Table) 07/22/19 07/22/19 07/22/19 Range/Units 12:50 17:03 20:09 Chloride (98-107) mmol/L Carbon Dioxide (22-30) mmol/L BUN (7-17) mg/dL Glucose (74-99) mg/dL POC Glucose (mg/dL) 110 H 103 H 154 H (75-99) mg/dL 05/29/20 05/30/20 05/30/20 Range/Units 23:57 06:22 07:12 Chloride 94 L (98-107) mmol/L Carbon Dioxide 39 H (22-30) mmol/L BUN 25 H (7-17) mg/dL Glucose 102 H (74-99) mg/dL POC Glucose (mg/dL) 135 H 120 H (75-99) mg/dL Assessment and Plan Plan: Assessment and plan: #1. Acute hypoxemic respiratory failure related to acute exacerbation of congestive heart failure systolic acute on chronic, ejection fraction 25-30% #2. Non-ST elevated myocardial infarction, status post angioplasty and stenting of the LAD and circumflex #3. Significant weight gain of around 40 pounds in the last month #4. Morbid obesity #5. Lifetime nonsmoker #6. diabetes mellitus type 2, with diabetic neuropathy #7. History of MRSA infection and nonhealing wound in the left leg Plan we will discontinue the IV Lasix and start the patient on oral diuretics. Discontinue Slaughter catheter and increase activity. Plan for possible discharge hometoday. Follow-up appointment in the office with Dr. Thompson post discharge. DNP note has been reviewed, I agree with a documented findings and plan of care. Patient was seen and examined.
[2019-07-23 12:00] LABS: Glucose,Whole Blood 259 mg/dL (75-99)
--- NOTE | 2019-07-23 12:43 | XR ---
EXAMINATION TYPE: XR chest 1V DATE OF EXAM: 07/23/2019 CLINICAL HISTORY: Difficulty breathing and CHF progress study. TECHNIQUE: Single AP portable frontal view of the chest is obtained. COMPARISON: Chest x-ray from 2 days earlier FINDINGS: Slightly suboptimal due to portable technique and patient's large body habitus similar to prior. Cardiac silhouette size is stable and mildly enlarged. Chronic parenchymal changes without new suspicious focal airspace opacity, pleural effusion, or pneumothorax seen bilaterally. Osseous struc tures grossly intact. IMPRESSION: Suboptimal study, cardiomegaly without new or acute pulmonary process clearly seen.
--- NOTE | 2019-07-23 12:55 | P.PN ---
Subjective 64-year-old female was admitted with shortness of breath and weight gain of 44 pounds and patient is being treated for heart failure exacerbation patient may have congestive heart failure left ventricular dysfunction and/or right-sided heart failure and pulmonary hypertension. Echocardiogram is still pending. Patient's swelling in the both legs improved significantly. Patient remains on Lasix patient feels much better today. But still short of breath All inpatient medications were reviewed and appropriate changes in these medications as dictated in the interval history and assessment and plan. 07/21/2019 Patient is seen and evaluated in follow-up currently sitting up in the chair with bilateral lower extremities elevated that are quite edematous although patient states this is improved from yesterday. Patient remains on Lasix and will continue at this time. Cardiology and pulmonary following. Patient states her shortness of breath has resolved and patient is currently on room air. She does not normally wear oxygen in the home setting. Patient currently remains on a heparin drip and will continue at this time. Creatinine slightly improved at 1.01, sodium is 140, covid testing was negative. PT/OT worked with the patient requiring some minimal assistance today although continues to need some assistance with the use of a walker. Patient is refusing rehab upon discharge. No reports of chest pain, shortness of breath, or palpitations. Patient is afebrile. No reports of nausea or vomiting and patient is tolerating diet. 07/22/2019 Patient is seen and evaluated in follow-up with no acute overnight issues. Troy rao awaiting to undergo cardiac catheterization with cardiology this afternoon. She remains on IV heparin along with IV Lasix drip and will continue at this time. Patient is diuresing well an indwelling Slaughter catheter is noted to have a large amount of output. Patient continues on room air with no reports of chest pain, shortness of breath, or palpitations. Patient is afebrile. No reports of nausea or vomiting and patient is tolerating diet. Sodium today is 139, potassium is 4.7, creatinine is slightly elevated at 1.10. Will repeat a.m. labs. 07/23/2019 Patient is doing much better today patient on oral Lasix patient is still requiring oxygen I'll obtain a repeat chest x-ray today patient had a ER for from 25-30% patient had a cardiac catheterization and stenting to circumflex Objective - Vital Signs Vital signs: Vital Signs Temp 98.1 F 07/23/19 08:00 Pulse 88 07/23/19 11:41 Resp 18 07/23/19 08:00 BP 118/59 07/23/19 08:00 Pulse Ox 87 L 07/23/19 08:00 Intake & Output 07/22/19 07/23/19 07/23/19 18:59 06:59 18:59 Intake Total 1366.864 Output Total 3200 3575 Balance -1833.136 -3575 Weight 149.3 kg Intake: IV 1010 Intake, IV Titration 120.864 Amount Heparin Sod,Pork in 0.45% 120.864 NaCl 25,000 unit In 0.45 % NaCl 1 250ml.bag @ 6.59 UNITS/KG/HR 9.984 mls/hr IV .Q24H [facility] Rx#: [id number] Oral 236 Output: Urine 3200 3575 Other: Voiding Method Indwelling Catheter Indwelling Catheter Indwelling Catheter - Exam PHYSICAL EXAMINATION: GENERAL: The patient is alert and oriented x3, not in any acute distress. Her but obese with BMI of around 54 HEENT: Pupils are round and equally reacting to light. EOMI. No scleral icterus. No conjunctival pallor. Normocephalic, atraumatic. No pharyngeal erythema. No thyromegaly. CARDIOVASCULAR: S1 and S2 present. No murmurs, rubs, or gallops. PULMONARY: Chest is clear to auscultation, no wheezing or crackles. ABDOMEN: Soft, nontender, nondistended, normoactive bowel sounds. No palpable organomegaly. MUSCULOSKELETAL: No joint swelling or deformity. EXTREMITIES: No cyanosis, clubbing, extensive bilateral pedal edema with chronic venous stasis and venous stasis dermatosis of both legs with more healed ulcers, swelling in both legs intermittently improved NEUROLOGICAL: Gross neurological examination did not reveal any focal deficits. SKIN: No rashes. - Labs CBC & Chem 7: 07/23/19 07:12 07/23/19 07:12 Labs: Abnormal Lab Results - Last 24 Hours (Table) 07/22/19 07/22/19 07/22/19 Range/Units 12:50 17:03 20:09 Chloride (98-107) mmol/L Carbon Dioxide (22-30) mmol/L BUN (7-17) mg/dL Glucose (74-99) mg/dL POC Glucose (mg/dL) 110 H 103 H 154 H (75-99) mg/dL 07/22/19 07/23/19 07/23/19 Range/Units 23:57 06:22 07:12 Chloride 94 L (98-107) mmol/L Carbon Dioxide 39 H (22-30) mmol/L BUN 25 H (7-17) mg/dL Glucose 102 H (74-99) mg/dL POC Glucose (mg/dL) 135 H 120 H (75-99) mg/dL 07/23/19 Range/Units 11:43 Chloride (98-107) mmol/L Carbon Dioxide (22-30) mmol/L BUN (7-17) mg/dL Glucose (74-99) mg/dL POC Glucose (mg/dL) 259 H (75-99) mg/dL Assessment and Plan Plan: Acute non-ST elevation microinfarction: She is status post cardiac catheteriza tion and stent to circumflex. -Acute systolic dysfunction with pulmonary edema and acute exacerbation of CHF patient was on Lasix to which was switched to oral Lasix patient had EF of 25- 30% -Hyponatremia hypervolemic hyponatremia improved with Lasix -Chronic kidney disease stage III secondary to diabetic nephropathy -Mildly elevated troponin secondary to shortness of breath -Mildly elevated liver enzymes secondary to hepatic congestion -Obesity with sleep apnea and possible based stay hypoventilation syndrome -Type 2 diabetes mellitus: The patient will be resumed on home regimen along with sliding scale -DVT prophylaxis with Lovenox
--- NOTE | 2019-07-23 16:10 | PN ---
PROGRESS NOTE PULMONARY/CRITICAL CARE PROGRESS NOTE: DATE OF SERVICE: 07/23/2019 This is a 64-year-old obese white female. We saw her initially in the emergency room. She came in with acute hypoxemic respiratory failure secondary to acute exacerbation of systolic congestive heart failure. The patient's ejection fraction is 25-30%. In addition, we were concerned about a non ST-segment elevation myocardial infarction. She did go to the catheterization laboratory. She had a catheterization yesterday. She did have successful stenting of the left circumflex coronary artery using two stents, and also successful stenting of a mid left anterior descending coronary artery using one stent. Currently, the patient feels very good. She states that she is not having any chest pain or chest discomfort. She is not short of breath. She is hoping to be discharged soon. In addition, the patient has a history of diabetes mellitus, previous MRSA infection and nonhealing wound in the left leg, and probable sleep apnea syndrome. She will need evaluation for that in the outpatient setting. PHYSICAL EXAMINATION: VITAL SIGNS: Current vital signs are reviewed. Temperature 98.1, heart rate 78, respiratory rate 20, blood pressure 120/82, mean 94, room air saturation 97%. Appears in no acute distress. HEENT: Examination is grossly unremarkable. Mucous membranes are moist. NECK: Supple. No supplemental oxygen. No neck vein distention. No adenopathy or thyromegaly. CARDIOVASCULAR: Examination reveals a regular rhythm rate. S1, S2 normal. Heart rate 78. No murmur. LUNGS: Reveal mostly clear breath sounds. A few scattered mild rhonchi. No wheezes or crackles. ABDOMEN: Obese. Bowel sounds are heard. EXTREMITIES are intact. No edema. SKIN: Without rash. NEUROLOGIC: Examination is brief but nonfocal. LABS: Reviewed. White count 9.1, hemoglobin 12.4, hematocrit 39.4, platelet count 389,000. Sodium 138, potassium 3.9, chloride 94, CO2 39, anion gap is 5. BUN and creatinine were 25 and 1.04. Microbiologic studies are negative. A chest x-ray was done today. It shows evidence of cardiomegaly without any pulmonary infiltrate. Medications are reviewed. ASSESSMENT: 1. Acute hypoxemic respiratory failure secondary to acute exacerbation of the patient's systolic congestive heart failure, with an ejection fraction of 25-30%. 2. Postoperative day #1 status post stenting of the circumflex coronary artery and LAD coronary artery. 3. Non ST-segment elevation myocardial infarction. 4. Significant weight gain, about 40 pounds, in the last month. 5. Morbid obesity. 6. Lifetime nonsmoker. 7. Diabetes mellitus with diabetic neuropathy. 8. History of MRSA infection and nonhealing wound in the left leg. 9. Probable sleep apnea syndrome, will need outpatient evaluation. PLAN: The patient had stents placed yesterday. She is doing well. She feels well. She denies any shortness of breath, difficulty breathing, coughing, wheezing, phlegm production, chest pain, chest pressure, palpitations, or any other complaints for that matter. She is hoping to be discharged in the near future. No additional recommendations are made. We will follow up with her in the outpatient setting. She will need to be evaluated for sleep apnea syndrome. MMROBERTL / GRAYN: [id number] /
[2019-07-23] MEDS: PRASUGREL 10 MG TAB PO SCH (16:36)
[2019-07-23 17:30] LABS: Glucose,Whole Blood 184 mg/dL (75-99)
[2019-07-23 20:25] LABS: Glucose,Whole Blood 212 mg/dL (75-99)
[2019-07-23] MEDS: INSULIN DETEMIR (LEVEMIR) 100 UNIT/ML SYR SQ SCH (20:47)
[2019-07-24 06:11] LABS: Glucose,Whole Blood 119 mg/dL (75-99)
[2019-07-24] MEDS: INSULIN ASPART (NovoLOG) 100 UNIT/ML VIAL SQ SCH (06:13)
[2019-07-24] MEDS: IPRATROPIUM-ALBUTEROL 3 ML NEB INHALATION SCH ×2 (08:10→11:21)
[2019-07-24] MEDS: LISINOPRIL 10 MG TAB PO SCH (08:57)
[2019-07-24] MEDS: PRASUGREL 10 MG TAB PO SCH (08:57)
[2019-07-24] MEDS: FUROSEMIDE 40 MG TAB PO SCH (08:57)
[2019-07-24] MEDS: OXYBUTYNIN 10 MG TAB.ER.24 PO SCH (08:57)
[2019-07-24] MEDS: ASPIRIN 81 MG PO SCH (08:57)
[2019-07-24] MEDS: METOPROLOL TARTRATE 12.5 MG TAB PO SCH (08:57)
[2019-07-24 09:52] VITALS: BP 124/62; PULSE 82; RESP 20; TEMP 98.5
[2019-07-24 11:28] LABS: Glucose,Whole Blood 154 mg/dL (75-99)
--- NOTE | 2019-07-24 11:46 | P.PN ---
Subjective Progress Note Date: 07/24/19 This is a very pleasant 64-year-old female patient with a past medical history significant for morbid obesity, diabetes, hypertension, and dyslipidemia as well as tonic lower extremities edema. She initially presented to the hospital with symptoms of progressively worsening shortness of breath and significant weight gain. She was seen in consultation yesterday by Dr. Thompson, and initiated on IV Lasix. He diuresed very well through the night last night, 4000 output. Blood pressure 124/70 with a heart rate in the 70s to 80s, 91% on room air. Sodium 140, potassium 4.2, BUN 32, creatinine 1.0. Patient continues to have a significant amount of bilateral peripheral edema. We will discontinue the IV push Lasix and start her on a Lasix drip today. Continue to monitor closely her intake and output along with daily weights and daily lytes BUN and creatinine. She also had an echo to Doppler performed which revealed an ejection fraction of 25-30%. Dr. Thompson had a lengthy discussion with the patient regarding cardiac catheterization as well as the risks and the benefits. We will tentatively s chedule this for tomorrow. 07/23/2019 Patient was taken to the cardiac catheterization lab yesterday where she underwent angioplasty and stenting of the LAD and circumflex. She was seen and examined this morning sitting up in the chair at bedside, feels well, denies any chest pain and her breathing is stable, she diuresed again well through the night last night. We will discontinue her IV Lasix, put her on oral diuretics. Remove the Slaughter catheter. Her lytes BUN and creatinine from this morning remain pending, if they are stable she should be able to be discharged home from our perspective. 07/24/2019 Patient was seen and examined this morning, overall doing well. Denies any chest discomfort in her breathing is stable. Blood pressure 124/60 with a heart rate in the 70s to 80s, 90% on room air. No lab data today Objective - Vital Signs Vital signs: Vital Signs Temp 98.5 F 07/24/19 08:00 Pulse 78 07/24/19 08:21 Resp 20 07/24/19 08:00 BP 124/62 07/24/19 08:00 Pulse Ox 90 L 07/24/19 08:00 Intake & Output 07/23/19 07/24/1920 18:59 06:59 18:59 Intake Total 230 Output Total 2800 1100 Balance -2800 -1100 230 Weight 150 kg Intake: Oral 230 Output: Urine 2800 1100 Other: Voiding Method Indwelling Catheter Toilet Toilet # Voids 0 1 # Bowel Movements 0 - Exam GENERAL EXAM: Alert, a pleasant, 64-year-old obese white female, no acute distress at the time of my examination HEAD: Normocephalic/atraumatic. EYES: Normal reaction of pupils, equal size. Conjunctiva pink, sclera white. NOSE: Clear with pink turbinates. THROAT: No erythema or exudates. NECK: No masses, no JVD, no thyroid enlargement, no adenopathy. CHEST: No chest wall deformity. Symmetrical expansion. LUNGS: Equal air entry with no crackles, wheeze, rhonchi or dullness. CVS: Regular rate and rhythm, normal S1 and S2, no gallops, no murmurs, no rubs ABDOMEN: Soft, obese, nontender. No hepatosplenomegaly, normal bowel sounds, no guarding or rigidity. EXTREMITIES: No clubbing, chronic venous stasis changes present to lower extremities, suspect some chronic swelling to lower extremities no cyanosis, 2+ pulses and upper and lower extremities. 1+ lower extremity edema. Right radial site clean and dry, good distal pulse. MUSCULOSKELETAL: Muscle strength and tone normal. SPINE: No scoliosis or deformity SKIN: No rashes CENTRAL NERVOUS SYSTEM: Alert and oriented -3. No focal deficits, tone is normal in all 4 extremities. PSYCHIATRIC: Alert and oriented -3. Appropriate affect. Intact judgment and insight. - Labs CBC & Chem 7: 07/23/19 07:12 07/23/19 07:12 Labs: Abnormal Lab Results - Last 24 Hours (Table) 07/23/19 07/23/19 07/23/19 Range/Units 11:43 17:26 20:24 POC Glucose (mg/dL) 259 H 184 H 212 H (75-99) mg/dL 07/24/19 07/24/19 Range/Units 06:10 11:06 POC Glucose (mg/dL) 119 H 154 H (75-99) mg/dL Assessment and Plan Plan: Assessment and plan: #1. Acute hypoxemic respiratory failure related to acute exacerbation of congestive heart failure systolic acute on chronic, ejection fraction 25-30% #2. Non-ST elevated myocardial infarction, status post angioplasty and stenting of the LAD and circumflex #3. Significant weight gain of around 40 pounds in the last month #4. Morbid obesity #5. Lifetime nonsmoker #6. diabetes mellitus type 2, with diabetic neuropathy #7. History of MRSA infection and nonhealing wound in the left leg Plan From cardiology's perspective, patient may be able to be discharged once cleared by primary. We'll make her a follow-up appointment in the office post discharge. DNP note has been reviewed, I agree with a documented findings and plan of care. Patient was seen and examined.
--- NOTE | 2019-07-24 12:16 | P.DS ---
Providers Date of admission: 07/19/19 04:58 Attending physician: Aleks Shine Consults: 07/19/19 04:58 Consult Physician Routine Consulting Provider: Trevor Bae Consult Reason/Comments: hypoxia Do you want consulting provider notified?: Yes Consult Physician Routine Consulting Provider: Tommy Castro Consult Reason/Comments: chf Do you want consulting provider notified?: Yes 07/22/19 12:20 Consult Physician Routine Consulting Provider: [facility] Consult Reason/Comments: Post Interventional patient Do you want consulting provider notified?: Already Contacted Primary care physician: Keith Conway [facility] Hospital Course: 64-year-old female was admitted with shortness of breath and weight gain of 44 pounds and patient is being treated for heart failure exacerbation patient may have congestive heart failure left ventricular dysfunction and/or right-sided heart failure and pulmonary hypertension. Echocardiogram is still pending. Patient's swelling in the both legs improved significantly. Patient remains on Lasix patient feels much better today. But still short of breath All inpatient medications were reviewed and appropriate changes in these medications as dictated in the interval history and assessment and plan. 07/21/2019 Patient is seen and evaluated in follow-up currently sitting up in the chair with bilateral lower extremities elevated that are quite edematous although patient states this is improved from yesterday. Patient remains on Lasix and will continue at this time. Cardiology and pulmonary following. Patient states her shortness of breath has resolved and patient is currently on room air. She does not normally wear oxygen in the home setting. Patient currently remains on a heparin drip and will continue at this time. Creatinine slightly improved at 1.01, sodium is 140, covid testing was negative. PT/OT worked with the patient requiring some minimal assistance today although continues to need some assistance with the use of a walker. Patient is refusing rehab upon discharge. No reports of chest pain, shortness of breath, or palpitations. Patient is afebrile. No reports of nausea or vomiting and patient is tolerating diet. 07/22/2019 Patient is seen and evaluated in follow-up with no acute overnight issues. Patient awaiting to undergo cardiac catheterization with cardiology this afternoon. She remains on IV heparin along with IV Lasix drip and will continue at this time. Patient is diuresing well an indwelling Slaughter catheter is noted to have a large amount of output. Patient continues on room air with no reports of chest pain, shortness of breath, or palpitations. Patient is afebrile. No reports of nausea or vomiting and patient is tolerating diet. Sodium today is 139, potassium is 4.7, creatinine is slightly elevated at 1.10. Will repeat a.m. labs. 07/23/2019 Patient is doing much better today patient on oral Lasix patient is still requiring oxygen I'll obtain a repeat chest x-ray today patient had a ER for from 25-30% patient had a cardiac catheterization and stenting to circumflex. 07/24/2019 she and is clinically doing well cleared for discharge patient will be discharged today, Patient is not requiring any oxygen PHYSICAL EXAMINATION: GENERAL: The patient is alert and oriented x3, not in any acute distress. Well developed, well nourished. HEENT: Pupils are round and equally reacting to light. EOMI. No scleral icterus. No conjunctival pallor. Normocephalic, atraumatic. No pharyngeal erythema. No thyromegaly. CARDIOVASCULAR: S1 and S2 present. No murmurs, rubs, or gallops. PULMONARY: Chest is clear to auscultation, no wheezing or crackles. ABDOMEN: Soft, nontender, nondistended, normoactive bowel sounds. No palpable organomegaly. MUSCULOSKELETAL: No joint swelling or deformity. EXTREMITIES: No cyanosis, clubbing, patient does have some pedal edema NEUROLOGICAL: Gross neurological examination did not reveal any focal deficits. SKIN: No rashes. Assessment and Plan Plan: Acute non-ST elevation microinfarction: She is status post cardiac catheterization and stent to circumflex. -Acute systolic dysfunction with pulmonary edema and acute exacerbation of CHF patient was on Lasix to which was switched to oral Lasix patient had EF of 25- 30% -Hyponatremia hypervolemic hyponatremia improved with Lasix -Chronic kidney disease stage III secondary to diabetic nephropathy -Mildly elevated troponin secondary to shortness of breath -Mildly elevated liver enzymes secondary to hepatic congestion -Obesity with sleep apnea -Type 2 diabetes mellitus: The patient will be resumed on home regimen along with sliding scale Patient Condition at Discharge: Fair Plan - Discharge Summary Discharge Rx Participant: No New Discharge Prescriptions: New Aspirin 81 mg PO DAILY #30 chew Prasugrel [Effient] 10 mg PO DAILY #30 tab Furosemide [Lasix] 40 mg PO DAILY #30 tab Metoprolol Tartrate [Lopressor] 12.5 mg PO BID #60 tab Nitroglycerin Sl Tabs [Nitrostat] 0.4 mg SUBLINGUAL Q5M PRN #25 tab PRN Reason: Chest Pain Continue Multivitamin [Multivitamins] 1 tab PO DAILY Ascorbic Acid [Vitamin C] 500 mg PO BID Lisinopril [Zestril] 10 mg PO DAILY Tolterodine Tartrate [Detrol LA] 4 mg PO DAILY Liraglutide [Victoza 3-Amilcar] 1.8 mg SQ DAILY Insulin Degludec [Tresiba Flextouch U-200] 70 units SQ HS metFORMIN HCL [Glucophage] 500 mg PO TID #0 Discharge Medication List Multivitamin [Multivitamins] 1 tab PO DAILY 06/23/13 [History] Ascorbic Acid [Vitamin C] 500 mg PO BID 06/30/13 [History] Insulin Degludec [Tresiba Flextouch U-200] 70 units SQ HS 07/19/19 [History] Liraglutide [Victoza 3-Amilcar] 1.8 mg SQ DAILY 07/19/19 [History] Lisinopril [Zestril] 10 mg PO DAILY 07/19/19 [History] Tolterodine Tartrate [Detrol LA] 4 mg PO DAILY 07/19/19 [History] Aspirin 81 mg PO DAILY #30 chew 07/23/19 [Rx] Furosemide [Lasix] 40 mg PO DAILY #30 tab 07/23/19 [Rx] Metoprolol Tartrate [Lopressor] 12.5 mg PO BID #60 tab 07/23/19 [Rx] Nitroglycerin Sl Tabs [Nitrostat] 0.4 mg SUBLINGUAL Q5M PRN #25 tab 07/23/19 [Rx] Prasugrel [Effient] 10 mg PO DAILY #30 tab 07/23/19 [Rx] metFORMIN HCL [Glucophage] 500 mg PO TID #0 07/23/19 [Rx] Follow up Appointment(s)/Referral(s): [facility] [NON-STAFF] - 1-2 Days (Home care will call you to set up appointment) Keith Suarez DO [Primary Care Provider] - 3 Days (Please call Thursday to set up follow up appointment) Dallas Romero MD [STAFF PHYSICIAN] - 1 Week (Please call Thursday and set up follow up appointment) Nolberto Rincon DO [Doctor of Osteopathic Medicine] - 2 Weeks (please call on Thursday to make follow up appointment ) Patient Instructions/Handouts: Heart Failure (DC), COPD (Chronic Obstructive Pulmonary Disease) (DC) Discharge Disposition: HOME SELF-CARE
--- NOTE | 2019-07-24 16:11 | PN ---
PROGRESS NOTE PULMONARY/CRITICAL CARE PROGRESS NOTE: DATE OF SERVICE: 07/24/2019 This is a 64-year-old female that we saw today in followup. She had acute hypoxemic respiratory failure secondary to exacerbation of the patient's systolic congestive heart failure. She has an ejection fraction of 25-30%, She is postop day #2, status post stenting of the circumflex coronary artery and LAD coronary artery. She had a non ST-segment elevation myocardial infarction. She is feeling much better. She is a lifetime nonsmoker. No known history of any chronic lung disease. PHYSICAL EXAMINATION: VITAL SIGNS: Current vital signs are reviewed. Temperature 98.5, heart rate 76, respiratory rate 20, blood pressure 124/62, mean 82. Saturation on room air is 94%. Appears in no acute distress. HEENT: Examination is grossly unremarkable. Mucous membranes are moist. NECK: Supple. Full range of motion. No adenopathy. Neck veins are flat. CARDIOVASCULAR: Examination reveals regular rhythm rand ate. Heart rate 76 beats per minute. S1, S2 normal. LUNGS: Reveal mostly clear breath sounds. A few scattered rhonchi are noted. A few scattered crackles are noted. ABDOMEN: Soft but obese. EXTREMITIES are intact. There is slight edema. SKIN: Without rash. NEUROLOGIC: Examination is brief but nonfocal. LABS: Reviewed. Nothing new to report. Microbiology is negative. No new x-rays to report. A chest x-ray from yesterday shows cardiomegaly but no acute abnormality otherwise. Medications are reviewed. ASSESSMENT: 1. Acute hypoxemic respiratory failure secondary to acute exacerbation of the patient's systolic congestive heart failure, with an ejection fraction of 25-30%. 2. Postoperative day #2 status post stenting of the circumflex and LAD coronary arteries. 3. Non ST-segment elevation myocardial infarction. 4. Significant weight gain, about 40 pounds, in the last month. 5. Morbid obesity. 6. Lifetime nonsmoker. 7. Diabetes mellitus with diabetic neuropathy. 8. History of MRSA infection and nonhealing wound in the left leg. 9. Probable sleep apnea syndrome. The patient will need outpatient evaluation of that. PLAN: The patient will follow up in the office. We will get her set up for sleep study. She is doing well. She has no chest pain or chest discomfort. She has no breathing difficulty or shortness of breath. She denies any cough, wheezing, phlegm production. She is not coughing up any blood. She will follow up with us in the office. MMODL / IJN: [id number] /
== END 2019-07-24 13:16 | disposition home or self-care (01) | DRG 246 ==
LOC: EC 04:15 → 3SCARD 04:58
PROVIDERS: ADMIT Hospitalist; ATTEND Hospitalist
PROC: 4A023N7 Measurement of Cardiac Sampling and Pressure, Left Heart, Percutaneous Approach (ICD-10-PCS; principal; 2019-07-22 13:30)
PROC: B2111ZZ Fluoroscopy of Multiple Coronary Arteries using Low Osmolar Contrast (ICD-10-PCS; principal; 2019-07-22 13:30)
PROC: 027136Z Dilation of Coronary Artery, Two Arteries with Three Drug-eluting Intraluminal Devices, Percutaneous Approach (ICD-10-PCS; principal; 2019-07-22 13:30)
DX: I21.4 Non-ST elevation (NSTEMI) myocardial infarction (principal); J96.01 Acute respiratory failure with hypoxia; I50.23 Acute on chronic systolic (congestive) heart failure; I13.0 Hypertensive heart and chronic kidney disease with heart failure and stage 1 through stage 4 chronic kidney disease, or unspecified chronic kidney disease; J44.1 Chronic obstructive pulmonary disease with (acute) exacerbation; E66.2 Morbid (severe) obesity with alveolar hypoventilation; Z68.43 Body mass index [BMI] 50.0-59.9, adult; E87.1 Hypo-osmolality and hyponatremia; J98.11 Atelectasis; Z11.59 Encounter for screening for other viral diseases; I27.21 Secondary pulmonary arterial hypertension; N18.3 Chronic kidney disease, stage 3 (moderate); E11.40 Type 2 diabetes mellitus with diabetic neuropathy, unspecified; K76.1 Chronic passive congestion of liver; E11.22 Type 2 diabetes mellitus with diabetic chronic kidney disease; Z79.4 Long term (current) use of insulin; I87.8 Other specified disorders of veins; I25.10 Atherosclerotic heart disease of native coronary artery without angina pectoris; I25.5 Ischemic cardiomyopathy; I08.1 Rheumatic disorders of both mitral and tricuspid valves; E78.5 Hyperlipidemia, unspecified; Z71.3 Dietary counseling and surveillance; Z79.899 Other long term (current) drug therapy; Z86.14 Personal history of Methicillin resistant Staphylococcus aureus infection; Z90.710 Acquired absence of both cervix and uterus; Z90.49 Acquired absence of other specified parts of digestive tract; Z98.890 Other specified postprocedural states; Z88.2 Allergy status to sulfonamides
CPT/HCPCS: 71045; 80048; 80053; 83880; 84484; 85025; 85027; 85730; 87635; 93306; 93458; 94640; 94760; 96365; 96366; 96372; 96375; 96376; 99285

== ENCOUNTER 2019-08-31 14:48 | Inpatient (IN) | payer MEDICARE, OTHER ==
--- NOTE | 2019-08-31 15:43 | ED ---
General Adult HPI - General Chief complaint: Extremity Problem,Nontraumatic Stated complaint: Sepsis Time Seen by Provider: 08/31/19 15:15 Source: patient, old records reviewed Mode of arrival: EMS Limitations: no limitations - History of Present Illness Initial comments: The patient is a 64-year-old female with past medical history of diabetes, morbid obesity and lymphedema who presents emergency Department with reported weakness, nausea and vomiting for the past 2 days. She reports fevers. Denies any abdominal pain. No changes in her bowel or bladder habits. No chest pain or shortness of breath. She has a known ulcer of her left heel. Has noted redness and swelling which tracks up the left thigh. Admits to 4-5 episodes of vomiting. No diarrhea or constipation. No black or bloody stools. [facility] Full workup was performed. Patient was given 800 mL bolus of normal saline, vancomycin and Zosyn for sepsis secondary to left lower extremity cellulitis. chest x-ray and x-ray of the patient's left foot was performed. Left foot x-ray demonstrates no acute findings. X-ray demonstrates small nodular density projecting over the left apex. Patient was then transferred to our facility for further evaluation. She was recently hospitalized in April here and this is when the daughter stated that she developed this wound. Patient denies any pain in her lower extremity. No history of DVT or PE. There are no other alleviating, precipitating or modifying factors - Related Data Home Medications Medication Instructions Recorded Confirmed Multivitamin [Multivitamins] 1 tab PO DAILY 06/23/13 08/31/19 Ascorbic Acid [Vitamin C] 500 mg PO BID 06/30/13 08/31/19 Liraglutide [Victoza 3-Amilcar] 1.8 mg SQ DAILY 07/19/19 08/31/19 Lisinopril [Zestril] 10 mg PO DAILY 07/19/19 08/31/19 Tolterodine Tartrate [Detrol LA] 4 mg PO DAILY 07/19/19 08/31/19 Metoprolol Tartrate 12.5 mg PO BID 08/31/19 08/31/19 Previous Rx's Medication Instructions Recorded Aspirin 81 mg PO DAILY #30 chew 07/23/19 Furosemide [Lasix] 40 mg PO DAILY #30 tab 07/23/19 Nitroglycerin Sl Tabs [Nitrostat] 0.4 mg SUBLINGUAL Q5M PRN #25 tab 07/23/19 Prasugrel [Effient] 10 mg PO DAILY #30 tab 07/23/19 metFORMIN HCL [Glucophage] 500 mg PO TID #0 07/23/19 Cephalexin [Keflex] 500 mg PO Q6HR #40 cap 09/05/19 Allergies Allergy/AdvReac Type Severity Reaction Status Date / Time sulfamethoxazole Allergy Unknown Verified 08/31/19 16:49 [From Bactrim] trimethoprim [From Bactrim] Allergy Unknown Verified 08/31/19 16:49 Review of Systems ROS Statement: Those systems with pertinent positive or pertinent negative responses have been documented in the HPI. ROS Other: All systems not noted in ROS Statement are negative. Past Medical History Past Medical History: Diabetes Mellitus, Hypertension Additional Past Medical History / Comment(s): neuropathy; wound L Leg History of Any Multi-Drug Resistant Organisms: MRSA Date of last positivie culture/infection: 2013 MDRO Source:: left foot Past Surgical History: Back Surgery, Cholecystectomy, Hysterectomy, Orthopedic Surgery Past Anesthesia/Blood Transfusion Reactions: No Reported Reaction Past Psychological History: No Psychological Hx Reported Smoking Status: Never smoker Past Alcohol Use History: Occasional Past Drug Use History: None Reported - Past Family History Father Family Medical History: Hypertension Additional Family Medical History / Comment(s): heart attack Mother Family Medical History: Diabetes Mellitus General Exam Limitations: no limitations General appearance: alert, in no apparent distress Head exam: Present: atraumatic, normocephalic, normal inspection Eye exam: Present: normal appearance, PERRL, EOMI. Absent: scleral icterus, conjunctival injection, periorbital swelling ENT exam: Present: normal exam, mucous membranes moist Neck exam: Present: normal inspection. Absent: tenderness, meningismus, lymphadenopathy Respiratory exam: Present: normal lung sounds bilaterally. Absent: respiratory distress, wheezes, rales, rhonchi, stridor Cardiovascular Exam: Present: regular rate, normal rhythm, normal heart sounds. Absent: systolic murmur, diastolic murmur, rubs, gallop, clicks GI/Abdominal exam: Present: soft, normal bowel sounds. Absent: distended, tenderness, guarding, rebound, rigid Extremities exam: Present: tenderness, normal capillary refill, pedal edema, other (brawny edema b/l lower extremities. left lower extremity is warm, swollen with red streaking to the skin consistent with cellulitis which extends up to mid thigh. compartments are soft. 2+ DP and PT pulses. ulcer left heel - plantar aspect measuring 3 x 3 cm. ). Absent: joint swelling, calf tenderness Back exam: Present: normal inspection Neurological exam: Present: alert, oriented X3, CN II-XII intact Psychiatric exam: Present: normal affect, normal mood Skin exam: Present: warm, dry, intact, normal color. Absent: rash Course Vital Signs 08/31/19 08/31/19 15:13 16:51 Temperature 100.1 F H 102.8 F H Pulse Rate 96 104 H Respiratory 18 18 Rate Blood Pressure 141/69 152/78 O2 Sat by Pulse 97 99 Oximetry Medical Decision Making - Medical Decision Making Upon arrival the patient was placed into room 24. Thorough history and physical exam was performed. I did review the patient's packet. White blood cell count is 21,000. Sodium 130. Glucose 250. The patient was admitted to [facility]. I discussed case with Dr. Meier. Patient remained in stable condition and was transported to the floor - Lab Data Result diagrams: 09/04/19 07:15 09/04/19 07:15 Disposition Clinical Impression: Diabetic ulcer of heel, Congestive heart failure, Morbid obesity due to excess calories, Cellulitis Disposition: ADMITTED IP TO THIS HOSP Condition: Stable Is patient prescribed a controlled substance at d/c from ED?: No Decision to Admit Reason: Admit from EC Decision Date: 08/31/19
[2019-08-31] MEDS ORDERED: HYDROcodone/APAP 5-325MG 1 EACH TAB PO PRN (18:24)
[2019-08-31] MEDS ORDERED: NALOXONE 0.4 MG/ML 1 ML VIAL IV PRN ×2 (18:24→19:38)
[2019-08-31] MEDS ORDERED: ACETAMINOPHEN TAB 325 MG TAB PO PRN ×2 (18:24→19:37)
[2019-08-31] MEDS ORDERED: VANCOMYCIN IV PER PHARMACY 1 EACH MISC MISCELLANE PRN (18:29)
[2019-08-31] MEDS ORDERED: SODIUM CHLORIDE 0.9% 1,000 ML IV SCH (18:30)
--- NOTE | 2019-08-31 18:44 | P.HPIM ---
History of Present Illness H&P Date: 08/31/19 Chief Complaint: Cellulitis 64-year-old female with PMH of CAD post stent, hypertension, diabetes mellitus presents to the ED for constellation of symptoms. Patient reports a 2 day history of lightheadedness, generalized weakness, nausea and fever. These symptoms prompted her to come to the ED. She was seen at an outside hospital. She does report ulcer on her left heel. Patient reports worsening erythema and warmth of her bilateral lower extremities. At the outside hospital, she was given an 800 mL bolus of normal saline, vancomycin and Zosyn. Foot x-ray showed no acute findings. CBC showed leukocytosis of 21.2. CMP showed sodium of 130, potassium of 5.1, BUN of 25, creatinine of 1.3, total bilirubin of 1.4 and glucose of 250. Chest x-ray showed small nodular density over the left apex. In the ED here, vital signs showed T-max of 102.8 Fahrenheit and tachycardia with heart rate of 104. Patient is admitted for sepsis related to cellulitis and ID consultation. Review of Systems Pertinent positives and negatives as discussed in HPI, a complete review of systems was performed and all other systems are negative. Past Medical History Past Medical History: Diabetes Mellitus, Hypertension Additional Past Medical History / Comment(s): neuropathy; wound L Leg History of Any Multi-Drug Resistant Organisms: MRSA Date of last positivie culture/infection: 2013 MDRO Source:: left foot Past Surgical History: Back Surgery, Cholecystectomy, Hysterectomy, Orthopedic Surgery Past Anesthesia/Blood Transfusion Reactions: No Reported Reaction Past Psychological History: No Psychological Hx Reported Smoking Status: Never smoker Past Alcohol Use History: Occasional Past Drug Use History: None Reported - Past Family History Father Family Medical History: Hypertension Additional Family Medical History / Comment(s): heart attack Mother Family Medical History: Diabetes Mellitus Medications and Allergies Home Medications Medication Instructions Recorded Confirmed Type Multivitamin [Multivitamins] 1 tab PO DAILY 06/23/13 08/31/19 History Ascorbic Acid [Vitamin C] 500 mg PO BID 06/30/13 08/31/19 History Liraglutide [Victoza 3-Amilcar] 1.8 mg SQ DAILY 07/19/19 08/31/19 History Lisinopril [Zestril] 10 mg PO DAILY 07/19/19 08/31/19 History Tolterodine Tartrate [Detrol LA] 4 mg PO DAILY 07/19/19 08/31/19 History Aspirin 81 mg PO DAILY #30 chew 07/23/19 08/31/19 Rx Furosemide [Lasix] 40 mg PO DAILY #30 tab 07/23/19 08/31/19 Rx Nitroglycerin Sl Tabs [Nitrostat] 0.4 mg SUBLINGUAL Q5M PRN #25 tab 07/23/19 08/31/19 Rx Prasugrel [Effient] 10 mg PO DAILY #30 tab 07/23/19 08/31/19 Rx metFORMIN HCL [Glucophage] 500 mg PO TID #0 07/23/19 08/31/19 Rx Metoprolol Tartrate 12.5 mg PO BID 08/31/19 08/31/19 History Allergies Allergy/AdvReac Type Severity Reaction Status Date / Time sulfamethoxazole Allergy Unknown Verified 08/31/19 16:49 [From Bactrim] trimethoprim [From Bactrim] Allergy Unknown Verified 08/31/19 16:49 Physical Exam Vitals: Vital Signs Temp Pulse Resp BP Pulse Ox 08/31/19 16:51 102.8 F H 104 H 18 152/78 99 08/31/19 15:13 100.1 F H 96 18 141/69 97 Intake and Output 08/31/19 08/31/19 08/31/19 06:59 14:59 22:59 Other: Weight 136.078 kg General: [non toxic], [no distress, lethargic], [appears at stated age], morbidly obese Derm: [warm], [dry] Head: [atraumatic], [normocephalic], [symmetric] Eyes: [EOMI], [no lid lag], [anicteric sclera] Mouth: [no lip lesion], [mucus membranes moist] Cardiovascular: [S1S2 reg], [tachycardic], [positive DP pulse bilateral], Lungs: [CTA bilateral], [no rhonchi, no rales] , [no accessory muscle use] Abdominal: [soft], [ nontender to palpation], [no guarding], [no appreciable organomegaly] Ext: [no gross muscle atrophy], [no edema], [no contractures], left foot heel ulcer with no erythema or drainage, bilateral erythema extending to the knees with chronic venous stasis changes and xerosis Neuro: [ CN II-XI grossly intact], [no focal neuro deficits] Psych: [Alert], [oriented], [appropriate affect] Assessment and Plan Assessment: Sepsis related to cellulitis Acute kidney injury Hyperkalemia Abnormal chest x-ray CAD post stent Diabetes mellitus with hyperglycemia Hypertension Patient meets sepsis criteria. She has a positive source of infection with leukocytosis and tachycardia. She will be started on Rocephin and vancomycin. Infectious disease will be consulted. Tylenol as needed for fever or chills. Start normal saline at 100 mL/h. Obtain blood culture. Telemetry monitoring. Check lactic acid. BUN 25, creatinine 1.3. Unknown baseline. Likely related to dehydration. Continue IV hydration as above. Avoid nephrotoxins. Repeat BMP tomorrow morning. Potassium of 5.1. Unknown etiology. Plans to hold lisinopril and repeat BMP tomorrow morning. Nodularity seen on chest x-ray from outside hospital. Patient will need CT chest in the outpatient setting with PCP. Continue aspirin, metoprolol, parasugrel. Unsure why patient is not on Lipitor. Blood glucose 250. Start insulin sliding scale. Regular Accu-Cheks with hypoglycemic precautions. We will continue metoprolol for her hypertension. Her vital signs are being monitored and medications adjusted if necessary. DVT prophylaxis: [Heparin] Discussed with: [Patient and niece] Anticipated discharge: [2-3 days] Anticipated discharge place: [Home] A total of [45] minutes was spent on the care of this complex patient more than 50% of the time was spent in counseling and care coordination. Patient names her niece Viviana decision maker if she can't make decisions for herself. Patient would like to be no code.
[2019-08-31] MEDS ORDERED: IBUPROFEN 400 MG TAB PO PRN (19:38)
[2019-08-31] MEDS ORDERED: ONDANSETRON 4 MG/2 ML VIAL IVP PRN (19:39)
[2019-08-31] MEDS ORDERED: INSULIN ASPART (NovoLOG) 100 UNIT/ML VIAL SQ ONE (22:00)
[2019-08-31] MEDS ORDERED: ACETAMINOPHEN TAB 325 MG TAB ONE (22:00)
[2019-08-31] MEDS ORDERED: HEPARIN SODIUM,PORCINE 5,000 UNIT/ML 1 ML VIAL ONE (22:00)
[2019-08-31] MEDS ORDERED: METOPROLOL TARTRATE 12.5 MG TAB ONE (22:00)
[2019-09-01] MEDS ORDERED: VANCOMYCIN 2,000 MG in SODIUM CHLORIDE 0.9% 500 ML 500 ML IVPB ONE (02:00)
[2019-09-01] MEDS: INSULIN ASPART (NovoLOG) 100 UNIT/ML VIAL SQ SCH ×5 (06:10→21:35)
[2019-09-01] MEDS: HEPARIN SODIUM,PORCINE 5,000 UNIT/ML 1 ML VIAL SQ SCH ×3 (06:10→21:27)
[2019-09-01] MEDS: METOPROLOL TARTRATE 12.5 MG TAB PO SCH ×3 (06:10→21:27)
[2019-09-01] MEDS: SODIUM CHLORIDE 0.9% 1,000 ML IV SCH ×2 (06:10→08:29)
[2019-09-01 07:34] LABS: Glucose,Whole Blood 228 mg/dL (75-99)
[2019-09-01 07:41] LABS: Basophils % (A) 0 %; Eosinophils % (A) 0 %; HCT 35.9 % (34.0-46.0); HGB 11.6 gm/dL (11.4-16.0); Hypochromasia Slight; Lymphocytes # (A) 1.3 k/uL (1.0-4.8); Lymphocytes % (A) 9 %; MCH 26.4 pg (25.0-35.0); MCHC 32.3 g/dL (31.0-37.0); MCV 81.8 fL (80.0-100.0); Mean Platelet Volume 7.7; Monocytes # (A) 0.4 k/uL (0-1.0); Monocytes % (A) 3 %; Neutrophils # (A) 11.9 k/uL (1.3-7.7); Neutrophils % (A) 86 %; Platelet Count 234 k/uL (150-450); RBC 4.39 m/uL (3.80-5.40); RDW 15.7 % (11.5-15.5); WBC 13.9 k/uL (3.8-10.6)
[2019-09-01 08:04] LABS: Albumin 2.8 g/dL (3.5-5.0); Potassium 4.2 mmol/L (3.5-5.1); Total Bilirubin 0.8 mg/dL (0.2-1.3); Total Protein 5.7 g/dL (6.3-8.2)
[2019-09-01] MEDS: ASPIRIN 81 MG PO SCH (08:27)
[2019-09-01] MEDS: PRASUGREL 10 MG TAB PO SCH (08:27)
[2019-09-01] MEDS: FUROSEMIDE 40 MG TAB PO SCH (08:27)
[2019-09-01] MEDS: OXYBUTYNIN 10 MG TAB.ER.24 PO SCH (08:27)
--- NOTE | 2019-09-01 11:44 | P.CONS ---
History of Present Illness - Reason for Consult Consult date: 09/01/19 Wound care - History of Present Illness This is a 64-year-old pleasant female who has been seen in the wound care center in the past. Patient being seen today for a nonhealing ulceration to the left calcaneus plantar aspect. The ulceration is a stage II pressure ulcer. Patient states that she's had the ulcer for a while now. Previously she's had the same ulcer that was treated in the wound care center. Patient was not happy with the care at that time and now does not have transportation to come to wound care. Patient did have the ulceration healed previously from a wound care doctor in [place] multiple years ago. Patient has a elim ira boot at home. However she has not been wearing it. Patient states that she presented to the hospital yesterday due to weakness and changes in mental status. Patient 's past medical history is significant for diabetes and hypertension patient has neuropathy to bilateral lower extremities. She's also had MRSA in the left foot in 2013. Review of Systems Review Of Systems: Constitutional: No fever, no chills, no night sweats. No weight change. No weakness, fatigue or lethargy. No daytime sleepiness. Integumentary:reports wounds, no lesions. No rash or pruritus. No unusual bruising. No change in hair or nails. Past Medical History Past Medical History: Diabetes Mellitus, Hypertension Additional Past Medical History / Comment(s): neuropathy; wound L Leg History of Any Multi-Drug Resistant Organisms: MRSA Year Discovered:: 2013 MDRO Source:: left foot Past Surgical History: Back Surgery, Cholecystectomy, Hysterectomy, Orthopedic Surgery Past Anesthesia/Blood Transfusion Reactions: No Reported Reaction Past Psychological History: No Psychological Hx Reported Smoking Status: Never smoker Past Alcohol Use History: Occasional Past Drug Use History: None Reported - Past Family History Father Family Medical History: Hypertension Additional Family Medical History / Comment(s): heart attack Mother Family Medical History: Diabetes Mellitus Medications and Allergies Home Medications Medication Instructions Recorded Confirmed Type Multivitamin [Multivitamins] 1 tab PO DAILY 06/23/13 08/31/19 History Ascorbic Acid [Vitamin C] 500 mg PO BID 06/30/13 08/31/19 History Liraglutide [Victoza 3-Amilcar] 1.8 mg SQ DAILY 07/19/19 08/31/19 History Lisinopril [Zestril] 10 mg PO DAILY 07/19/19 08/31/19 History Tolterodine Tartrate [Detrol LA] 4 mg PO DAILY 07/19/19 08/31/19 History Aspirin 81 mg PO DAILY #30 chew 07/23/19 08/31/19 Rx Furosemide [Lasix] 40 mg PO DAILY #30 tab 07/23/19 08/31/19 Rx Nitroglycerin Sl Tabs [Nitrostat] 0.4 mg SUBLINGUAL Q5M PRN #25 tab 07/23/19 08/31/19 Rx Prasugrel [Effient] 10 mg PO DAILY #30 tab 07/23/19 08/31/19 Rx metFORMIN HCL [Glucophage] 500 mg PO TID #0 07/23/19 08/31/19 Rx Metoprolol Tartrate 12.5 mg PO BID 08/31/19 08/31/19 History Allergies Allergy/AdvReac Type Severity Reaction Status Date / Time sulfamethoxazole Allergy Unknown Verified 08/31/19 16:49 [From Bactrim] trimethoprim [From Bactrim] Allergy Unknown Verified 08/31/19 16:49 Physical Exam Vitals: Vital Signs Temp Pulse Pulse Resp BP BP Pulse Ox 09/01/19 07:00 98.3 F 81 18 126/68 96 09/01/19 02:51 18 09/01/19 02:38 98.9 F 09/01/19 01:44 98.4 F 76 18 123/71 96 08/31/19 23:36 16 08/31/19 21:35 99.9 F H 08/31/19 19:03 100.7 F H 85 18 119/63 96 08/31/19 18:27 100.5 F H 84 18 97/59 93 L 08/31/19 16:51 102.8 F H 104 H 18 152/78 99 08/31/19 15:13 100.1 F H 96 18 141/69 97 Intake and Output 08/31/19 09/01/19 09/01/19 22:59 06:59 14:59 Intake Total 100 Output Total 200 Balance 100 -200 Intake: Oral 100 Output: Urine 200 Other: # Voids 1 1 Weight 136.078 kg 136.078 kg Physical exam: General Appearance: Alert, cooperative, no distress, appears stated age. Skin: Stage II nonhealing pressure ulcer left calcaneus plantar aspect with fat layer exposure measuring approximately 3 x 2 x 0.3 cm. No tunneling or undermining noted, wound edges attached wound bed, wound bed shows significant amount of slough and minimal granulation. Purulent drainage noted to the site, periwound shows callus and minimal erythema. all other Skin color, texture, tugor normal, no rashes or lesions. Neurologic: Alert oriented x3 Results CBC & Chem 7: 09/01/19 07:10 09/01/19 07:10 Labs: Abnormal Lab Results - Last 24 Hours (Table) 09/01/19 09/01/19 09/01/19 Range/Units 07:10 07:10 07:32 WBC 13.9 H (3.8-10.6) k/uL RDW 15.7 H (11.5-15.5) % Neutrophils # 11.9 H (1.3-7.7) k/uL Sodium 132 L (137-145) mmol/L BUN 22 H (7-17) mg/dL Creatinine 1.16 H (0.52-1.04) mg/dL Glucose 192 H (74-99) mg/dL POC Glucose (mg/dL) 228 H (75-99) mg/dL Calcium 8.0 L (8.4-10.2) mg/dL Total Protein 5.7 L (6.3-8.2) g/dL Albumin 2.8 L (3.5-5.0) g/dL Assessment and Plan (1) Pressure ulcer of left heel, stage 2 Current Visit: Yes Status: Acute Code(s): L89.622 - PRESSURE ULCER OF LEFT HEEL, STAGE 2 SNOMED Code(s): 869038053 (2) Type 2 diabetes mellitus with diabetic ulcer of left lower leg Current Visit: No Status: Acute Code(s): E11.622 - TYPE 2 DIABETES MELLITUS WITH OTHER SKIN ULCER SNOMED Code(s): 499100749 (3) Venous stasis dermatitis of both lower extremities Current Visit: No Status: Acute Code(s): I83.11 - VARICOSE VEINS OF RIGHT L OWER EXTREMITY WITH INFLAMMATION SNOMED Code(s): 00294200 Plan: Apply honey alginate, feeling was gauze, dry gauze, rolled gauze secured paper tape. May secure with a Kirit elastic wrap. Nonweightbearing to left calcaneus. utilizes a walker for ambulation. Discussed with patient possible need for wound care. Patient declined at this time due to previous experience in the wound care center and distance. Patient lives alone and would not be able to make wound care appointments. Patient instructed to utilize [place] boot when returning home. Discussed to return to [facility] to assist with sit. Discussed the importance of continuing nonweightbearing status and utilizing walker at home. Dressing changes can resume with home care and primary care physician if needed. Thank you kindly for the consultation any questions please contact the wound care center DNP note has been reviewed and discussed with Dr. Vela and the impression and plan of care has been directed as dictated.
[2019-09-01 12:01] LABS: Glucose,Whole Blood 214 mg/dL (75-99)
--- NOTE | 2019-09-01 12:53 | P.PN ---
Subjective Progress Note Date: 09/01/19 Patient is doing fairly well today. No acute events overnight. Objective - Vital Signs Vital signs: Vital Signs Temp 98.3 F 09/01/19 07:00 Pulse 81 09/01/19 07:00 Resp 18 09/01/19 07:00 BP 126/68 09/01/19 07:00 Pulse Ox 96 09/01/19 07:00 Intake & Output 08/31/19 09/01/19 09/01/19 18:59 06:59 18:59 Intake Total 100 Output Total 200 Balance -100 Weight 136.078 kg 136.078 kg Intake: Oral 100 Output: Urine 200 Other: # Voids 1 1 - Exam General: The patient is awake and alert, in no distress Eye: there is normal conjunctiva bilaterally. Neck: The neck is supple, there is no JVD. Cardiovascular: Normal S1-S2, no S3-S4, no murmurs. Respiratory: Lungs clear to auscultation bilaterally Gastrointestinal: Abdomen is soft, nontender Neurological:. Speech is normal. Skin: Of the lower extremities very dry with evidence of chronic venous insufficiency stasis and lymphedema. Left foot ulcer /Clean dressing. - Labs CBC & Chem 7: 09/01/19 07:10 09/01/19 07:10 Labs: Abnormal Lab Results - Last 24 Hours (Table) 09/01/19 09/01/19 09/01/19 Range/Units 07:10 07:10 07:32 WBC 13.9 H (3.8-10.6) k/uL RDW 15.7 H (11.5-15.5) % Neutrophils # 11.9 H (1.3-7.7) k/uL Sodium 132 L (137-145) mmol/L BUN 22 H (7-17) mg/dL Creatinine 1.16 H (0.52-1.04) mg/dL Glucose 192 H (74-99) mg/dL POC Glucose (mg/dL) 228 H (75-99) mg/dL Calcium 8.0 L (8.4-10.2) mg/dL Total Protein 5.7 L (6.3-8.2) g/dL Albumin 2.8 L (3.5-5.0) g/dL 09/01/19 Range/Units 11:57 WBC (3.8-10.6) k/uL RDW (11.5-15.5) % Neutrophils # (1.3-7.7) k/uL Sodium (137-145) mmol/L BUN (7-17) mg/dL Creatinine (0.52-1.04) mg/dL Glucose (74-99) mg/dL POC Glucose (mg/dL) 214 H (75-99) mg/dL Calcium (8.4-10.2) mg/dL Total Protein (6.3-8.2) g/dL Albumin (3.5-5.0) g/dL Assessment and Plan Assessment: 1. Chronic pressure ulcer of the left heel, stage II with acute infection and surrounding cellulitis, currently on IV ceftriaxone and vancomycin. Awaiting infectious disease evaluation. Seen and evaluated by wound care. Appreciate recommendations. 2. Sepsis without septic shock, improved with IV fluid hydration and antibiotic. Blood culture pending 3. Acute kidney injury, resolved with IV fluid hydration 4. Hyperkalemia resolved. Lisinopril currently on hold. 5. Essential hypertension, blood pressure within acceptable range 6. Coronary artery disease with history of stent placement, continue medical management 7. Type 2 diabetes: Hold oral lesions and continue sliding scale insulin. A1c ordered. 8. Abnormal chest x-ray with nodularity noted. Require outpatient follow-up computed tomography scan for further evaluation
[2019-09-01 15:36] LABS: Glucose,Whole Blood 205 mg/dL (75-99)
[2019-09-01 17:23] LABS: Glucose,Whole Blood 241 mg/dL (75-99)
[2019-09-01 21:36] LABS: Glucose,Whole Blood 221 mg/dL (75-99)
[2019-09-02] MEDS ORDERED: VANCOMYCIN 2,000 MG in SODIUM CHLORIDE 0.9% 500 ML 500 ML IVPB SCH (06:00)
--- NOTE | 2019-09-02 06:56 | P.CONS ---
History of Present Illness - Reason for Consult Consult date: 09/01/19 Sepsis and worsening cellulitis Requesting physician: Neo Diego - Chief Complaint Left leg swelling redness and fever x few days - History of Present Illness Patient is a 64 year female with a past medical history significant for diabetes lymphedema and a chronic nonhealing wound to the left heel with the patient has for more than a year now patient presented to [facility] with nausea vomiting generalized weakness and a fever with her symptom has been getting worse for the last 2 days before she presented to the hospital. Also noticed to have increasing the swelling had redness of the left leg that has been extending from her left heel area patient did have some dull aching pain in the left leg with a density 4-5 or 10 and no radiation patient wound to the ER noticed to have a fever of 102F patient was tachycardic and did have elevated white count patient did have x-rays of the left foot which did not show any acute changes patient received vancomycin and Zosyn at that facility and subsequently the patient was transferred to [facility] for further management of underlying sepsis, and this hospital the patient also spiked a fever of 102F patient did have elevated white count 13,000 patient Was empirically started on vancomycin and Rocephin infectious disease was consulted for further management of antibiotic therapy subsequently the blood cultures that was done at [facility] came back positive with gram-positive cocci Review of Systems Positive point has been mentioned in the HPI rest of the systems are negative Past Medical History Past Medical History: Diabetes Mellitus, Hypertension Additional Past Medical History / Comment(s): neuropathy; wound L Leg History of Any Multi-Drug Resistant Organisms: MRSA Year Discovered:: 2013 MDRO Source:: left foot Past Surgical History: Back Surgery, Cholecystectomy, Hysterectomy, Orthopedic Surgery Past Anesthesia/Blood Transfusion Reactions: No Reported Reaction Past Psychological History: No Psychological Hx Reported Smoking Status: Never smoker Past Alcohol Use History: Occasional Past Drug Use History: None Reported - Past Family History Father Family Medical History: Hypertension Additional Family Medical History / Comment(s): heart attack Mother Family Medical History: Diabetes Mellitus Medications and Allergies Home Medications Medication Instructions Recorded Confirmed Type Multivitamin [Multivitamins] 1 tab PO DAILY 06/23/13 08/31/19 History Ascorbic Acid [Vitamin C] 500 mg PO BID 06/30/13 08/31/19 History Liraglutide [Victoza 3-Amilcar] 1.8 mg SQ DAILY 07/19/19 08/31/19 History Lisinopril [Zestril] 10 mg PO DAILY 07/19/19 08/31/19 History Tolterodine Tartrate [Detrol LA] 4 mg PO DAILY 07/19/19 08/31/19 History Aspirin 81 mg PO DAILY #30 chew 07/23/19 08/31/19 Rx Furosemide [Lasix] 40 mg PO DAILY #30 tab 07/23/19 08/31/19 Rx Nitroglycerin Sl Tabs [Nitrostat] 0.4 mg SUBLINGUAL Q5M PRN #25 tab 07/23/19 08/31/19 Rx Prasugrel [Effient] 10 mg PO DAILY #30 tab 07/23/19 08/31/19 Rx metFORMIN HCL [Glucophage] 500 mg PO TID #0 07/23/19 08/31/19 Rx Metoprolol Tartrate 12.5 mg PO BID 08/31/19 08/31/19 History Allergies Allergy/AdvReac Type Severity Reaction Status Date / Time sulfamethoxazole Allergy Unknown Verified 08/31/19 16:49 [From Bactrim] trimethoprim [From Bactrim] Allergy Unknown Verified 08/31/19 16:49 Physical Exam Vitals: Vital Signs Temp Pulse Pulse Resp BP BP Pulse Ox 09/01/19 07:00 98.3 F 81 18 126/68 96 09/01/19 02:51 18 09/01/19 02:38 98.9 F 09/01/19 01:44 98.4 F 76 18 123/71 96 08/31/19 23:36 16 08/31/19 21:35 99.9 F H 08/31/19 19:03 100.7 F H 85 18 119/63 96 08/31/19 18:27 100.5 F H 84 18 97/59 93 L 08/31/19 16:51 102.8 F H 104 H 18 152/78 99 08/31/19 15:13 100.1 F H 96 18 141/69 97 Intake and Output 08/31/19 09/01/19 09/01/19 22:59 06:59 14:59 Intake Total 100 Output Total 200 Balance 100 -200 Intake: Oral 100 Output: Urine 200 Other: # Voids 1 1 Weight 136.078 kg 136.078 kg GENERAL DESCRIPTION: Elderly female lying in bed, no distress. No tachypnea or accessory muscle of respiration use. HEENT: Shows Pallor , no scleral icterus. Oral mucous membrane is dry. No pharyngeal erythema or thrush NECK: Trachea central, no thyromegaly. LUNGS: Unlabored breathing. Clear to auscultation anteriorly. No wheeze or crackle. HEART: S1, S2, regular rate and rhythm. No loud murmur ABDOMEN: Soft, no tenderness , guarding or rigidity, no organomegaly EXTREMITIES: Left heel wound with no significant slough tissue and minimal drai nage no foul-smelling the with significant swelling redness and warmth to the left leg SKIN: No rash, no masses palpable. NEUROLOGICAL: The patient is awake, alert, oriented x3, mood and affect normal. Results CBC & Chem 7: 09/01/19 07:10 09/01/19 07:10 Labs: Abnormal Lab Results - Last 24 Hours (Table) 09/01/19 09/01/19 09/01/19 Range/Units 07:10 07:10 07:32 WBC 13.9 H (3.8-10.6) k/uL RDW 15.7 H (11.5-15.5) % Neutrophils # 11.9 H (1.3-7.7) k/uL Sodium 132 L (137-145) mmol/L BUN 22 H (7-17) mg/dL Creatinine 1.16 H (0.52-1.04) mg/dL Glucose 192 H (74-99) mg/dL POC Glucose (mg/dL) 228 H (75-99) mg/dL Calcium 8.0 L (8.4-10.2) mg/dL Total Protein 5.7 L (6.3-8.2) g/dL Albumin 2.8 L (3.5-5.0) g/dL 09/01/19 Range/Units 11:57 WBC (3.8-10.6) k/uL RDW (11.5-15.5) % Neutrophils # (1.3-7.7) k/uL Sodium (137-145) mmol/L BUN (7-17) mg/dL Creatinine (0.52-1.04) mg/dL Glucose (74-99) mg/dL POC Glucose (mg/dL) 214 H (75-99) mg/dL Calcium (8.4-10.2) mg/dL Total Protein (6.3-8.2) g/dL Albumin (3.5-5.0) g/dL Assessment and Plan Assessment: 1- patient presented to the hospital with sepsis in this patient would fever tachycardia and elevated white count source is a cute her left lower extremity cellulitis with a portal of knees likely nonhealing wound to the left heel area now with evidence of underlying abscess and deep infection need to be ruled out such as an abscess for osteomyelitis 2- gram-positive bacteremia source is likely left heel wound and lower extremity cellulitis 3-sulfa ALLERGY (1) Cellulitis of left lower extremity Current Visit: Yes Status: Acute Code(s): L03.116 - CELLULITIS OF LEFT LOWER LIMB SNOMED Code(s): 597564350 (2) Gram-positive bacteremia Current Visit: Yes Status: Acute Code(s): R78.81 - BACTEREMIA SNOMED Code(s): 217369929620 (3) Sepsis Current Visit: Yes Status: Acute Code(s): A41.9 - SEPSIS, UNSPECIFIED ORGANISM SNOMED Code(s): 78294764 Plan: 1- blood cultures will be repeated document clearance of bacteremia 2-check a CRP and sed rate 3-CT of the left foot to make sure no evidence of any abscess or osteomyelitis 4-Vancomycin pharmacy to dose target trough of 15 while watching his kidney function and Vanco trough closely 5- dry Aquacel silver dressing to the left heel wound followed by Kirit wrap from just above the toe to below the knee We will follow on clinical condition and cultures to further adjust medication if needed Thank you for this consultation will follow this patient with you Time with Patient: Greater than 30
[2019-09-02 07:22] LABS: Glucose,Whole Blood 158 mg/dL (75-99)
[2019-09-02 07:43] LABS: Basophils # (A) 0.1 k/uL (0-0.2); Basophils % (A) 1 %; Eosinophils # (A) 0.1 k/uL (0-0.7); Eosinophils % (A) 1 %; HCT 37.7 % (34.0-46.0); HGB 11.3 gm/dL (11.4-16.0); Hypochromasia Marked; Lymphocytes # (A) 1.9 k/uL (1.0-4.8); Lymphocytes % (A) 22 %; MCH 25.3 pg (25.0-35.0); MCHC 29.9 g/dL (31.0-37.0); MCV 84.4 fL (80.0-100.0); Mean Platelet Volume 7.7; Monocytes # (A) 0.5 k/uL (0-1.0); Monocytes % (A) 5 %; Neutrophils # (A) 5.7 k/uL (1.3-7.7); Neutrophils % (A) 67 %; Platelet Count 228 k/uL (150-450); RBC 4.47 m/uL (3.80-5.40); RDW 15.7 % (11.5-15.5); WBC 8.5 k/uL (3.8-10.6)
[2019-09-02] MEDS: ASPIRIN 81 MG PO SCH (07:51)
[2019-09-02] MEDS: FUROSEMIDE 40 MG TAB PO SCH (07:51)
[2019-09-02] MEDS: PRASUGREL 10 MG TAB PO SCH (07:52)
[2019-09-02] MEDS: OXYBUTYNIN 10 MG TAB.ER.24 PO SCH (07:52)
[2019-09-02] MEDS: METOPROLOL TARTRATE 12.5 MG TAB PO SCH ×2 (07:52→20:43)
[2019-09-02 07:53] LABS: Calcium 8.2 mg/dL (8.4-10.2); Potassium 4.4 mmol/L (3.5-5.1)
[2019-09-02] MEDS: INSULIN ASPART (NovoLOG) 100 UNIT/ML VIAL SQ SCH ×4 (07:53→20:43)
[2019-09-02] MEDS: HEPARIN SODIUM,PORCINE 5,000 UNIT/ML 1 ML VIAL SQ SCH ×2 (07:53→20:43)
--- NOTE | 2019-09-02 08:34 | CT ---
EXAMINATION TYPE: CT foot LT wo con DATE OF EXAM: 09/02/2019 COMPARISON: 08/31/2019 HISTORY: Lt heel wound and bacteremia CT DLP: 181.8 mGycm Automated exposure control for dose reduction was used. CONTRAST: CT scan of the left foot is performed , patient injected with 75 mL of Isovue 300. FINDINGS- Soft tissue calcifications are seen and there is arthropathy of the ankle mortise and chronic deformi ty involving the lateral malleolus. Subtalar joint demonstrates mild arthropathy and there is a large calcaneal spur. No destructive changes are seen. There is diffuse skin thickening and diffuse soft tissue edema throughout the ankle and visualized fo ot. No definable abscess cavity is seen. Thickening of the plantar apical fibrosis is noted. Appears to be an ulceration of the skin at the level of the heel IMPRESSION- 1. Diffuse soft tissue edema, skin thickening and soft tissue ulceration overlying the plantar aspect of the foot adjacent to the heel. No destructive osseous changes or evidence of abscess. Correlate f or severe cellulitis.
--- NOTE | 2019-09-02 09:33 | P.PN ---
Subjective Patient is doing fairly well today. No acute events overnight. Objective - Vital Signs Vital signs: Vital Signs Temp 98.2 F 09/02/19 07:00 Pulse 78 09/02/19 07:00 Resp 16 09/02/19 08:00 BP 135/54 09/02/19 07:00 Pulse Ox 91 L 09/02/19 07:00 Intake & Output 09/01/19 09/02/19 09/02/19 18:59 06:59 18:59 Output Total 1600 1200 Balance -1600 -1200 Weight 136.078 kg Output: Urine 1600 1200 - Exam General: The patient is awake and alert, in no distress Eye: there is normal conjunctiva bilaterally. Neck: The neck is supple, there is no JVD. Cardiovascular: Normal S1-S2, no S3-S4, no murmurs. Respiratory: Lungs clear to auscultation bilaterally Gastrointestinal: Abdomen is soft, nontender Neurological:. Speech is normal. Skin: Of the lower extremities very dry with evidence of chronic venous insufficiency stasis and lymphedema. Left foot ulcer /Clean dressing. - Labs CBC & Chem 7: 09/02/19 07:14 09/02/19 07:09 Labs: Abnormal Lab Results - Last 24 Hours (Table) 08/31/19 09/01/19 09/01/19 Range/Units 21:04 07:10 11:57 Hgb (11.4-16.0) gm/dL MCHC (31.0-37.0) g/dL RDW (11.5-15.5) % Sodium (137-145) mmol/L BUN (7-17) mg/dL Glucose (74-99) mg/dL POC Glucose (mg/dL) 205 H 214 H (75-99) mg/dL Hemoglobin A1c 7.0 H (4.0-6.0) % Calcium (8.4-10.2) mg/dL 09/01/19 09/01/19 09/02/19 Range/Units 17:21 21:35 07:09 Hgb (11.4-16.0) gm/dL MCHC (31.0-37.0) g/dL RDW (11.5-15.5) % Sodium 134 L (137-145) mmol/L BUN 25 H (7-17) mg/dL Glucose 161 H (74-99) mg/dL POC Glucose (mg/dL) 241 H 221 H (75-99) mg/dL Hemoglobin A1c (4.0-6.0) % Calcium 8.2 L (8.4-10.2) mg/dL 09/02/19 09/02/19 Range/Units 07:12 07:14 Hgb 11.3 L (11.4-16.0) gm/dL MCHC 29.9 L (31.0-37.0) g/dL RDW 15.7 H (11.5-15.5) % Sodium (137-145) mmol/L BUN (7-17) mg/dL Glucose (74-99) mg/dL POC Glucose (mg/dL) 158 H (75-99) mg/dL Hemoglobin A1c (4.0-6.0) % Calcium (8.4-10.2) mg/dL Microbiology - Last 24 Hours (Table) 08/31/19 20:00 Blood Culture - Preliminary Blood No Growth after 24 hours Assessment and Plan Assessment: 1. Chronic pressure ulcer of the left heel, stage II with acute infection and surrounding cellulitis, currently on IV ceftriaxone and vancomycin. Seen and evaluated by infectious disease and wound care. Appreciate recommendations. Computed tomography scan of the foot showed no evidence of abscess formation or osteomyelitis. 2. Sepsis with gram-positive bacteremia without septic shock, improved with IV fluid hydration and antibiotic. Blood culture at outside hospital showed gram- positive cocci. Repeat blood culture here are negative to date 3. Acute kidney injury, resolved with IV fluid hydration 4. Hyperkalemia resolved. Lisinopril currently on hold. Blood pressure within acceptable range 5. Essential hypertension, blood pressure within acceptable range 6. Coronary artery disease with history of stent placement, continue medical management 7. Type 2 diabetes: Hold oral lesions and continue sliding scale insulin. A1c 7.0 blood glucose not well controlled with sliding scale. I would add Levemir 8 units once a day 8. Abnormal chest x-ray with nodularity noted. Require outpatient follow-up computed tomography scan for further evaluation Continue current regimen otherwise. Anticipate discharge home within the next couple of days pending final recommendation from ID regarding antibiotic course Patient is not interested in following up with the wound care clinic and would like to have visiting nurses at home which is already set up
[2019-09-02 10:02] VITALS: BMI 48.4
[2019-09-02 11:40] LABS: Glucose,Whole Blood 231 mg/dL (75-99)
[2019-09-02] MEDS: INSULIN DETEMIR (LEVEMIR) 100 UNIT/ML SYR SQ SCH (11:45)
--- NOTE | 2019-09-02 15:53 | CDI ---
Documentation Clarification Form Date: 09/02/2019 03:28:17 PM From: Mercedes Reyes RN CCDS Admit Date: 08/31/2019 03:50:00 PM Patient Name: Lilliam Ferrara Visit Number: [id number] Discharge Date: ATTENTION: The Clinical Documentation Specialists (CDI) and [facility] Coding Staff appreciate your assistance in clarifying documentation. Please respond to the clarification below the line at the bottom and electronically sign. The CDI & [facility] Coding staff will review the response and follow-up if needed. Please note: Queries are made part of the Legal Health Record. If you have any questions, please contact the author of this message via ITS. Dr. Umer Bennett Congestive Heart Failure is documented in ED Impressions 08/30 History/Risk Factors: 64-year-old female presents to the ED with two day history of lightheadedness, generalized weakness, nausea and fever. Medical history HTN, CAD post stent and DM per H&P Clinical Indicators: 08/30 Admission VS/Pulse OX: BP: 141/69; HR: 96; Temp: 100.1 F Oral; RR: 18; SpO2 97% 2L nasal cannula 07/19 Echocardiogram Results: Moderate concentric left ventricular hypertrophy. Overall left ventricular systolic function is severity impaired with, an EF between 25-30%. Right ventricle is mildly enlarged. Treatment: 08/31 Lasix 40mg po daily; Lopressor 12.5mg bid; In your professional opinion, can you please clarify the acuity and type of CHF if known? Chronic Systolic Heart Failure Chronic Systolic & Diastolic Heart Failure CHF Ruled Out Unable to Determine Other, please specify (Last Revision: May 2017) Chronic Systolic & Diastolic Heart Failure MTDD
--- NOTE | 2019-09-02 16:55 | PN ---
PROGRESS NOTE DATE OF SERVICE: 09/02/2019 REASON FOR FOLLOWUP: Left heel wound with secondary cellulitis and bacteremia. INTERVAL HISTORY: The patient is currently afebrile, patient is breathing comfortably. The patient denies having any chest pain or shortness of breath, no cough, no nausea, no vomiting, no abdominal pain or pain to the left leg area. PHYSICAL EXAMINATION: Blood pressure 135/54 with a pulse of 78, temperature 98.2, she is 91% on room air. General description is an elderly female up in the chair, in no distress. RESPIRATORY SYSTEM: Unlabored breathing, clear to auscultation anteriorly. HEART: S1, S2. Regular rate and rhythm. ABDOMEN: Soft, no tenderness. LABS: Hemoglobin is 11.1, white count 8.5, BUN of 25, creatinine 0.94, blood culture here are negative, blood cultures in the outside facility were positive with gram-positive cocci, recent pending. CT foot did not show any abscess or osteomyelitis. DIAGNOSTIC IMPRESSION AND PLAN: Patient with extensive left lower extremity cellulitis from the wound on the left heel area with gram-positive bacteremia. Will wait for the blood culture to finalize to determine discharge antibiotics. Continue with vancomycin and Rocephin at this point and monitor clinical course closely. MMODL / IJN: [id number] /
[2019-09-02 17:24] LABS: Glucose,Whole Blood 260 mg/dL (75-99)
[2019-09-02 20:10] LABS: Glucose,Whole Blood 250 mg/dL (75-99)
[2019-09-02] MEDS: VANCOMYCIN 2,000 MG in SODIUM CHLORIDE 0.9% 500 ML 500 ML IVPB SCH (21:24)
[2019-09-03 06:24] LABS: Basophils % (A) 0 %; Eosinophils # (A) 0.1 k/uL (0-0.7); Eosinophils % (A) 1 %; HCT 36.9 % (34.0-46.0); HGB 11.2 gm/dL (11.4-16.0); Hypochromasia Slight; Lymphocytes # (A) 1.6 k/uL (1.0-4.8); Lymphocytes % (A) 20 %; MCH 24.9 pg (25.0-35.0); MCHC 30.4 g/dL (31.0-37.0); Monocytes # (A) 0.4 k/uL (0-1.0); Monocytes % (A) 5 %; Neutrophils # (A) 5.6 k/uL (1.3-7.7); Neutrophils % (A) 70 %; Platelet Count 295 k/uL (150-450); RDW 15.8 % (11.5-15.5)
[2019-09-03 06:33] LABS: Calcium 8.6 mg/dL (8.4-10.2); Potassium 4.4 mmol/L (3.5-5.1)
[2019-09-03 06:59] LABS: Glucose,Whole Blood 194 mg/dL (75-99)
[2019-09-03 07:02] LABS: C Reactive Protein 145.2 mg/L (<10.0)
[2019-09-03] MEDS: INSULIN ASPART (NovoLOG) 100 UNIT/ML VIAL SQ SCH ×4 (07:26→20:33)
[2019-09-03] MEDS: HEPARIN SODIUM,PORCINE 5,000 UNIT/ML 1 ML VIAL SQ SCH ×2 (07:26→20:33)
[2019-09-03] MEDS: INSULIN DETEMIR (LEVEMIR) 100 UNIT/ML SYR SQ SCH (07:26)
[2019-09-03] MEDS: ASPIRIN 81 MG PO SCH (07:29)
[2019-09-03] MEDS: FUROSEMIDE 40 MG TAB PO SCH (07:30)
[2019-09-03] MEDS: OXYBUTYNIN 10 MG TAB.ER.24 PO SCH (07:30)
[2019-09-03] MEDS: METOPROLOL TARTRATE 12.5 MG TAB PO SCH ×2 (07:30→20:34)
[2019-09-03] MEDS: PRASUGREL 10 MG TAB PO SCH (07:31)
[2019-09-03 10:01] LABS: Erythrocyte Sedimentation Rate 83 mm/hr (0-20)
[2019-09-03 11:22] LABS: Glucose,Whole Blood 277 mg/dL (75-99)
--- NOTE | 2019-09-03 12:06 | P.PN ---
Subjective Progress Note Date: 09/03/19 The patient was 64-year-old female with a PMH of coronary artery disease status post stenting, type II DM, and hypertension, who was transferred from [facility] where she had presented to the ED with a constellation of symptoms including lightheadedness, fever, nausea, and generalized weakness. The patient was noted to have sepsis with an ulcer of the left heel along with the lateral lower extremity erythema and warmth. She was given Zosyn and vancomycin at [place] and was transferred to [facility] where she was thereby admitted to the medicine service with infectious disease and wound care on consult. She was started on vancomycin and ceftriaxone. CT of the left foot revealed no evidence of underlying abscess or osteomyelitis. The patient's blood culture from [facility] were positive for gram-positive cocci. The patient's blood cultures from [facility] continued to be negative to date at 48 hours. The patient was seen and evaluated at the bedside on 09/02. She reported feeling better and denied active complaints. Denied fever, chills, nausea, vomiting, chest pain, shortness of breath. Objective - Vital Signs Vital signs: Vital Signs Temp 99.2 F 09/03/19 08:00 Pulse 69 09/03/19 08:00 Resp 17 09/03/19 08:00 BP 133/74 09/03/19 08:00 Pulse Ox 98 09/03/19 08:00 Intake & Output 09/02/19 09/03/19 09/03/19 18:59 06:59 18:59 Intake Total 580 Output Total 1450 1350 Balance -1450 -1350 580 Intake: Oral 580 Output: Urine 1450 1350 Other: Voiding Method Toilet # Voids 1 2 # Bowel Movements 1 - Exam General: Non-toxic, in no acute distress, appears stated age, morbidly obese HEENT: NC/AT, anicteric sclerae, moist conjunctiva, no lid-lag, PERRLA Cardiovascular: S1/S2 wnl, no murmurs, rubs, or gallops Lungs: Clear to auscultation, normal respiratory effort, no accessory muscle use Abdominal: Soft, non-tender, non-distended, no guarding, rebound, or rigidity Skin: Warm, dry Extremities: Bilateral lower extremity chronic venous stasis changes with the left heel dressing in place with minimal surrounding erythema Psychiatric: Alert and oriented to person, place and time, appropriate affect Neuro: CN II-XII grossly intact, no focal neuro deficits noted, Speech intact, Sensation to light touch grossly intact throughout - Labs CBC & Chem 7: 09/03/19 05:38 09/03/19 05:38 Labs: Abnormal Lab Results - Last 24 Hours (Table) 09/02/19 09/02/19 09/03/19 Range/Units 17:18 20:07 05:38 Hgb 11.2 L (11.4-16.0) gm/dL MCH 24.9 L (25.0-35.0) pg MCHC 30.4 L (31.0-37.0) g/dL RDW 15.8 H (11.5-15.5) % ESR 83 H (0-20) mm/hr Sodium (137-145) mmol/L BUN (7-17) mg/dL Glucose (74-99) mg/dL POC Glucose (mg/dL) 260 H 250 H (75-99) mg/dL C-Reactive Protein (<10.0) mg/L 09/03/19 09/03/19 09/03/19 Range/Units 05:38 06:58 11:20 Hgb (11.4-16.0) gm/dL MCH (25.0-35.0) pg MCHC (31.0-37.0) g/dL RDW (11.5-15.5) % ESR (0-20) mm/hr Sodium 133 L (137-145) mmol/L BUN 24 H (7-17) mg/dL Glucose 209 H (74-99) mg/dL POC Glucose (mg/dL) 194 H 277 H (75-99) mg/dL C-Reactive Protein 145.2 H (<10.0) mg/L Microbiology - Last 24 Hours (Table) 08/31/19 20:00 Blood Culture - Preliminary Blood No Growth after 48 hours Assessment and Plan Plan: Left heel stage II ulcer with cellulitis, improved -Infectious disease and wound care recommendations appreciated -Continue with vancomycin and ceftriaxone -Awaiting repeat blood cultures to be finalized Sepsis, resolved Gram-positive bacteremia -Repeat blood cultures currently pending -Infectious disease following Acute kidney injury, resolved Hyperkalemia, resolved Type II DM with hyperglycemia -Increase Levemir to 12 units -Lispro sliding scale Hypertension, home lisinopril being held -Resume since AMITA has resolved Coronary artery disease -Continue with home meds DVT prophylaxis -Heparin subq Discussed with: Patient Anticipated discharge date: 1-[address]: Home (with visiting nurse services) A total of 30 minutes was spent on the care of this complex patient more than 50% of the time was spent in counseling and care coordination.
[2019-09-03] MEDS: VANCOMYCIN 2,000 MG in SODIUM CHLORIDE 0.9% 500 ML 500 ML IVPB SCH (12:39)
[2019-09-03 16:26] LABS: Glucose,Whole Blood 285 mg/dL (75-99)
--- NOTE | 2019-09-03 16:26 | PN ---
PROGRESS NOTE DATE OF SERVICE: 09/03/2019 REASON FOR FOLLOWUP: Right lower extremity cellulitis wound and bacteremia. INTERVAL HISTORY: Patient is currently afebrile. Patient is breathing comfortably. The patient denies having any chest pain or shortness of breath or cough. No abdominal pain or pain to the left leg. PHYSICAL EXAMINATION: Blood pressure 146/75 with a pulse of 72, temperature 98.1. She is 96% on room air. General description is an elderly female up in the chair in no distress. Respiratory system: Unlabored breathing. Clear to auscultation anteriorly. Heart S1, S2. Regular rate and rhythm. Abdomen soft, no tenderness. Left leg still has some swelling and redness. No drainage on the wound from the left foot. LABS: Hemoglobin 11.1, white count 8.9, BUN of 24, creatinine 0.82. Blood culture has been negative. DIAGNOSTIC IMPRESSION AND PLAN: Patient with a left heel wound with secondary cellulitis of the left leg in this patient who did have positive blood culture at the [facility], still waiting for the final ID of those cultures. Continue with vancomycin. Discharge antibiotic will depend on the final ID of that pathogen. Continue supportive care. MMODL / IJN: [id number] /
[2019-09-03 20:27] LABS: Glucose,Whole Blood 294 mg/dL (75-99)
[2019-09-04] MEDS: BENZOCAINE/MENTHOL LOZENG 1 EACH LOZENGE MUCOUS MEM PRN ×2 (00:20→07:33)
[2019-09-04] MEDS: VANCOMYCIN 2,000 MG in SODIUM CHLORIDE 0.9% 500 ML 500 ML IVPB SCH (05:11)
[2019-09-04] MEDS ORDERED: INSULIN DETEMIR (LEVEMIR) 100 UNIT/ML SYR SQ SCH (07:00)
[2019-09-04 07:16] LABS: Glucose,Whole Blood 208 mg/dL (75-99)
[2019-09-04] MEDS: INSULIN ASPART (NovoLOG) 100 UNIT/ML VIAL SQ SCH ×4 (07:28→20:13)
[2019-09-04] MEDS: HEPARIN SODIUM,PORCINE 5,000 UNIT/ML 1 ML VIAL SQ SCH ×2 (07:28→20:13)
[2019-09-04 07:29] LABS: Basophils % (A) 1 %; Eosinophils # (A) 0.2 k/uL (0-0.7); Eosinophils % (A) 3 %; HGB 11.9 gm/dL (11.4-16.0); Hypochromasia Moderate; Lymphocytes # (A) 1.8 k/uL (1.0-4.8); Lymphocytes % (A) 28 %; MCH 26.5 pg (25.0-35.0); MCV 82.7 fL (80.0-100.0); Mean Platelet Volume 7.5; Monocytes # (A) 0.4 k/uL (0-1.0); Monocytes % (A) 6 %; Neutrophils # (A) 3.8 k/uL (1.3-7.7); Neutrophils % (A) 61 %; Platelet Count 296 k/uL (150-450); RBC 4.48 m/uL (3.80-5.40); RDW 15.3 % (11.5-15.5); WBC 6.3 k/uL (3.8-10.6)
[2019-09-04] MEDS: PRASUGREL 10 MG TAB PO SCH (07:29)
[2019-09-04] MEDS: FUROSEMIDE 40 MG TAB PO SCH (07:29)
[2019-09-04] MEDS: ASPIRIN 81 MG PO SCH (07:29)
[2019-09-04] MEDS: METOPROLOL TARTRATE 12.5 MG TAB PO SCH ×2 (07:29→20:14)
[2019-09-04] MEDS: lisinopriL 10 MG TAB PO SCH (07:29)
[2019-09-04] MEDS: OXYBUTYNIN 10 MG TAB.ER.24 PO SCH (07:29)
[2019-09-04 07:55] LABS: Calcium 8.5 mg/dL (8.4-10.2); Potassium 4.2 mmol/L (3.5-5.1)
[2019-09-04 11:34] LABS: Glucose,Whole Blood 232 mg/dL (75-99)
--- NOTE | 2019-09-04 16:05 | P.PN ---
Subjective Progress Note Date: 09/04/19 The patient was 64-year-old female with a PMH of coronary artery disease status post stenting, type II DM, and hypertension, who was transferred from [facility] where she had presented to the ED with a constellation of symptoms including lightheadedness, fever, nausea, and generalized weakness. The patient was noted to have sepsis with an ulcer of the left heel along with the lateral lower extremity erythema and warmth. She was given Zosyn and vancomycin at [place] and was transferred to [facility] where she was thereby admitted to the medicine service with infectious disease and wound care on consult. She was started on vancomycin and ceftriaxone. CT of the left foot revealed no evidence of underlying abscess or osteomyelitis. The patient's blood culture from [facility] were positive for gram-positive cocci. The patient's blood cultures from [facility] continued to be negative to date at 72 hours. The patient was seen and evaluated at the bedside on 09/03. She denied active complaints including fever, chills, nausea, vomiting, chest pain, shortness of breath. Objective - Vital Signs Vital signs: Vital Signs Temp 98.2 F 09/04/19 13:00 Pulse 68 09/04/19 13:00 Resp 16 09/04/19 13:00 BP 135/72 09/04/19 13:00 Pulse Ox 94 L 09/04/19 13:00 Intake & Output 09/03/19 09/04/19 09/04/19 18:59 06:59 18:59 Intake Total 192 756 1768 Output Total 1200 2000 480 Balance -620 -1800 650 Weight 136.078 kg Intake: Intake, IV Titration 550 Amount Vancomycin 2,000 mg In 500 Sodium Chloride 0.9% 500 ml 500 ml @ 167 mls/hr IVPB Q16H JOCELYN Rx#: [id number] cefTRIAXone 1 gm In 50 Sodium Chloride 0.9% 50 ml @ 100 mls/hr IVPB Q24H JOCELYN Rx#:[id number] Oral 580 200 580 Output: Urine 1200 2000 480 Other: Voiding Method Toilet Bedside Commode Diaper # Voids 1 4 # Bowel Movements 1 - Exam General: Non-toxic, in no acute distress, appears stated age, morbidly obese HEENT: NC/AT, anicteric sclerae, moist conjunctiva, no lid-lag, PERRLA Cardiovascular: S1/S2 wnl, no murmurs, rubs, or gallops Lungs: Clear to auscultation, normal respiratory effort, no accessory muscle use Abdominal: Soft, non-tender, non-distended, no guarding, rebound, or rigidity Skin: Warm, dry Extremities: Bilateral lower extremity chronic venous stasis changes with lymphedema and the left heel dressing in place with minimal surrounding erythema Psychiatric: Alert and oriented to person, place and time, appropriate affect Neuro: CN II-XII grossly intact, no focal neuro deficits noted, Speech intact, Sensation to light touch grossly intact throughout - Labs CBC & Chem 7: 09/04/19 07:15 09/04/19 07:15 Labs: Abnormal Lab Results - Last 24 Hours (Table) 09/03/19 09/03/19 09/04/19 Range/Units 16:24 20:25 07:14 BUN (7-17) mg/dL Glucose (74-99) mg/dL POC Glucose (mg/dL) 285 H 294 H 208 H (75-99) mg/dL 09/04/19 09/04/19 Range/Units 07:15 11:32 BUN 20 H (7-17) mg/dL Glucose 220 H (74-99) mg/dL POC Glucose (mg/dL) 232 H (75-99) mg/dL Microbiology - Last 24 Hours (Table) 08/31/19 20:00 Blood Culture - Preliminary Blood No Growth after 72 hours Assessment and Plan Plan: Left heel stage II ulcer with cellulitis, improved -Infectious disease and wound care recommendations appreciated -Continue with vancomycin and ceftriaxone -Awaiting repeat blood cultures to be finalized Sepsis, resolved Gram-positive bacteremia -Repeat blood cultures currently pending -Infectious disease following Acute kidney injury, resolved Hyperkalemia, resolved Type II DM with hyperglycemia -Increase Levemir to 16 units daily -Lispro sliding scale Hypertension -Continue with home med lisinopril Coronary artery disease -Continue with home meds DVT prophylaxis -Heparin subq Discussed with: Patient Anticipated discharge date: 1-[address]: Home (with visiting nurse services) A total of 30 minutes was spent on the care of this complex patient more than 50% of the time was spent in counseling and care coordination.
[2019-09-04 16:40] LABS: Glucose,Whole Blood 247 mg/dL (75-99)
[2019-09-04 20:11] LABS: Glucose,Whole Blood 248 mg/dL (75-99)
[2019-09-04] MEDS ORDERED: VANCOMYCIN TROUGH DUE 1 EACH MISC MISCELLANE ONE (21:00)
--- NOTE | 2019-09-04 23:04 | P.PN ---
Progress Note - Text Progress Note Date: 09/04/19 REASON FOR FOLLOWUP: Right lower extremity cellulitis wound and bacteremia. INTERVAL HISTORY: Patient remains to be afebrile. Patient is breathing comfortably. The patient denies having any chest pain or shortness of breath or cough. No abdominal pain, the patient Denies pain to the left leg and overall redness has decreased PHYSICAL EXAMINATION: Blood pressure 140/70 with a pulse of 70, temperature 98.1. She is 96% on room air. General description is an elderly female up in the chair in no distress. Respiratory system: Unlabored breathing. Clear to auscultation anteriorly. Heart S1, S2. Regular rate and rhythm. Abdomen soft, no tenderness. Left leg still has some swelling however The redness has decreased LABS: Blood culture done at outside facility finalized and Streptococcus Blood culture done here has been negative DIAGNOSTIC IMPRESSION AND PLAN: Patient with a left heel wound with secondary cellulitis of the left leg in this patient who did have positive blood culture at the [facility], which has been finalized As Streptococcus B we'll switch her antibiotic therapy to cefazolin 2 g every 8 hours with the plan To finish therapy with oral Keflex continue local wound care as ordered
[2019-09-05 00:37] VITALS: TEMP 97.8
[2019-09-05 06:47] LABS: Glucose,Whole Blood 219 mg/dL (75-99)
[2019-09-05] MEDS ORDERED: INSULIN DETEMIR (LEVEMIR) 100 UNIT/ML SYR SQ SCH (07:00)
[2019-09-05] MEDS: INSULIN ASPART (NovoLOG) 100 UNIT/ML VIAL SQ SCH ×2 (07:23→13:08)
[2019-09-05] MEDS: HEPARIN SODIUM,PORCINE 5,000 UNIT/ML 1 ML VIAL SQ SCH (07:24)
[2019-09-05] MEDS: PRASUGREL 10 MG TAB PO SCH (07:24)
[2019-09-05] MEDS: METOPROLOL TARTRATE 12.5 MG TAB PO SCH (07:24)
[2019-09-05] MEDS: OXYBUTYNIN 10 MG TAB.ER.24 PO SCH (07:24)
[2019-09-05] MEDS: ASPIRIN 81 MG PO SCH (07:24)
[2019-09-05] MEDS: lisinopriL 10 MG TAB PO SCH (07:24)
[2019-09-05] MEDS: FUROSEMIDE 40 MG TAB PO SCH (07:24)
[2019-09-05 07:47] VITALS: BP 151/67; PULSE 67; RESP 18
[2019-09-05] MEDS: BENZOCAINE/MENTHOL LOZENG 1 EACH LOZENGE MUCOUS MEM PRN (08:13)
[2019-09-05 11:59] LABS: Glucose,Whole Blood 222 mg/dL (75-99)
--- NOTE | 2019-09-05 12:25 | PN ---
PROGRESS NOTE DATE OF SERVICE: 09/05/2019 REASON FOR FOLLOWUP: Left heel wound with secondary cellulitis of the left leg and Staphylococcus bacteremia. INTERVAL HISTORY: Patient is currently afebrile. The patient is breathing comfortably. The patient denies having any chest pain. No shortness of breath or cough. No nausea. No abdominal pain. Pain to the left leg. PHYSICAL EXAMINATION: Blood pressure 150/67 with a pulse of 67, temperature 97.9. She is 91% on room air. General description is an elderly female, up in the chair in no distress. RESPIRATORY SYSTEM: Unlabored breathing, clear to auscultation anteriorly. HEART S1, S2. Regular rate and rhythm. ABDOMEN: Soft, no tenderness. Left leg swelling improved as well as redness. No drainage on the dressing. LABS: Blood culture has been negative. Blood culture with the outside facility was Streptococcus. DIAGNOSTIC IMPRESSION AND PLAN: Patient with left lower extremity wound with secondary cellulitis of the left leg and streptococcal bacteremia. Blood culture repeat has been negative. Plan on Keflex 500 mg p.o. q.6 hours for another 10 days. Prescription has been sent to the pharmacy. Questions and concerns were answered. MMODL / IJN: [id number] /
--- NOTE | 2019-09-05 13:59 | P.DS ---
Providers Date of admission: 08/31/19 15:50 Expected date of discharge: 09/05/19 Attending physician: Kailey Wood DO Consults: 08/31/19 18:25 Consult Physician Routine Consulting Provider: Neda Burrell Consult Reason/Comments: cellulitis Do you want consulting provider notified?: Yes Primary care physician: [facility] Course: The patient was 64-year-old female with a PMH of coronary artery disease status post stenting, type II DM, and hypertension, who was transferred from [facility] where she had presented to the ED with a constellation of symptoms including lightheadedness, fever, nausea, and generalized weakness. The patient was noted to have sepsis with an ulcer of the left heel along with the lateral lower extremity erythema and warmth. She was given Zosyn and vancomycin at [place] and was transferred to [facility] where she was thereby admitted to the medicine service with infectious disease and wound care on consult. She was started on vancomycin and ceftriaxone. CT of the left foot revealed no evidence of underlying abscess or osteomyelitis. The patient's blood culture from [facility] were positive for gram-positive cocci and finalized as streptococci group B. The patient's blood cultures from [facility] continued to be negative to date at 96 hours. Infectious disease recommended the patient can be discharged home with oral Keflex and wound care. The patient was seen and evaluated at the bedside on the day of discharge. She reported feeling well and has now she is back to her baseline. She denied active complaints. Denied chest pain, shortness of fever, chills, nausea, vomiting. Physical Examination General: Non-toxic, in no acute distress, appears stated age, normal weight HEENT: NC/AT, anicteric sclerae, moist conjunctiva, no lid-lag, PERRLA Cardiovascular: S1/S2 wnl, no murmurs, rubs, or gallops Lungs: Clear to auscultation, normal respiratory effort, no accessory muscle use Abdominal: Soft, non-tender, non-distended, no guarding, rebound, or rigidity Skin: Warm, dry Extremities: No edema or contractures Psychiatric: Alert and oriented to person, place and time, appropriate affect Neuro: CN II-XII grossly intact, Strength 5/5 in all 4 extremities, Speech intact, Sensation to light touch grossly intact throughout Discharge diagnosis: Left heel stage II ulcer with cellulitis; Streptococcus bacteremia; acute kidney injury, resolved; hyperkalemia, resolved; type II DM; hypertension; coronary artery disease; sepsis resolved A total of 35 minutes of time were spent preparing this complex discharge summary. Patient Condition at Discharge: Stable Plan - Discharge Summary Discharge Rx Participant: Yes New Discharge Prescriptions: New Cephalexin [Keflex] 500 mg PO Q6HR #40 cap Continue Multivitamin [Multivitamins] 1 tab PO DAILY Ascorbic Acid [Vitamin C] 500 mg PO BID Lisinopril [Zestril] 10 mg PO DAILY Tolterodine Tartrate [Detrol LA] 4 mg PO DAILY Liraglutide [Victoza 3-Amilcar] 1.8 mg SQ DAILY Aspirin 81 mg PO DAILY #30 chew Prasugrel [Effient] 10 mg PO DAILY #30 tab Furosemide [Lasix] 40 mg PO DAILY #30 tab Nitroglycerin Sl Tabs [Nitrostat] 0.4 mg SUBLINGUAL Q5M PRN #25 tab PRN Reason: Chest Pain metFORMIN HCL [Glucophage] 500 mg PO TID #0 Metoprolol Tartrate 12.5 mg PO BID Discharge Medication List Multivitamin [Multivitamins] 1 tab PO DAILY 06/23/13 [History] Ascorbic Acid [Vitamin C] 500 mg PO BID 06/30/13 [History] Liraglutide [Victoza 3-Amilcar] 1.8 mg SQ DAILY 07/19/19 [History] Lisinopril [Zestril] 10 mg PO DAILY 07/19/19 [History] Tolterodine Tartrate [Detrol LA] 4 mg PO DAILY 07/19/19 [History] Aspirin 81 mg PO DAILY #30 chew 07/23/19 [Rx] Furosemide [Lasix] 40 mg PO DAILY #30 tab 07/23/19 [Rx] Nitroglycerin Sl Tabs [Nitrostat] 0.4 mg SUBLINGUAL Q5M PRN #25 tab 07/23/19 [Rx] Prasugrel [Effient] 10 mg PO DAILY #30 tab 07/23/19 [Rx] metFORMIN HCL [Glucophage] 500 mg PO TID #0 07/23/19 [Rx] Metoprolol Tartrate 12.5 mg PO BID 08/31/19 [History] Cephalexin [Keflex] 500 mg PO Q6HR #40 cap 09/05/19 [Rx] Follow up Appointment(s)/Referral(s): [facility] [NON-STAFF] - Deanna Bethea PAC [Primary Care Provider] - 09/07/19 10:40 am [facility] [NON-STAFF] - As Needed Patient Instructions/Handouts: Cellulitis (DC), Diabetic Foot Ulcers (DC) Activity/Diet/Wound Care/Special Instructions: Keep leg dressings dry - non-weight bearing on left heel. Use walker as instructed Follow a Consistent Carbohydrate diet Dressings to be changed Thursday, and Thursday with Home Care Nurses (Honey sheet, Wet-to-dry gauze, kerlex bandage, KIRIT wrap from toes to knee with tape to secure.) Kirit wrap can be applied to right leg as tolerated Discharge Disposition: HOME WITH HOME HEALTH SERVICES
== END 2019-09-05 15:08 | disposition home health service (06) | DRG 872 ==
LOC: EC 14:48 → 4SSUR 15:50
PROVIDERS: ADMIT Internal Medicine; ATTEND Internal Medicine
DX: A40.9 Streptococcal sepsis, unspecified (principal); L03.116 Cellulitis of left lower limb; Z68.42 Body mass index [BMI] 45.0-49.9, adult; L03.115 Cellulitis of right lower limb; N17.9 Acute kidney failure, unspecified; I50.42 Chronic combined systolic (congestive) and diastolic (congestive) heart failure; Z11.59 Encounter for screening for other viral diseases; E11.40 Type 2 diabetes mellitus with diabetic neuropathy, unspecified; E11.621 Type 2 diabetes mellitus with foot ulcer; E11.622 Type 2 diabetes mellitus with other skin ulcer; E11.65 Type 2 diabetes mellitus with hyperglycemia; E66.01 Morbid (severe) obesity due to excess calories; E86.0 Dehydration; E87.5 Hyperkalemia; I11.0 Hypertensive heart disease with heart failure; I25.10 Atherosclerotic heart disease of native coronary artery without angina pectoris; I83.90 Asymptomatic varicose veins of unspecified lower extremity; I87.2 Venous insufficiency (chronic) (peripheral); L89.622 Pressure ulcer of left heel, stage 2; Z79.02 Long term (current) use of antithrombotics/antiplatelets; Z79.84 Long term (current) use of oral hypoglycemic drugs; Z79.82 Long term (current) use of aspirin; Z79.899 Other long term (current) drug therapy; Z82.49 Family history of ischemic heart disease and other diseases of the circulatory system; Z83.3 Family history of diabetes mellitus; Z86.14 Personal history of Methicillin resistant Staphylococcus aureus infection; Z88.2 Allergy status to sulfonamides; Z90.710 Acquired absence of both cervix and uterus; Z95.5 Presence of coronary angioplasty implant and graft; Z60.2 Problems related to living alone
CPT/HCPCS: 80048; 80053; 83036; 83605; 84484; 85025; 85652; 86140; 87040; 93005; 99285